=== PATIENT | male | born 1975 | race Caucasian/White ===

== ENCOUNTER 2020-05-11 11:35 | Emergency (ER) | payer MEDICAID, SELFPAY ==
[2020-05-11 11:57] VITALS: BP 131/76; PULSE 65; RESP 16; TEMP 36.6; O2SAT 99; BMI 21.7
--- NOTE | 2020-05-11 12:43 | ED_ITS ---
HPI - General Adult General Chief complaint: General Medical Stated complaint: hemroid Time Seen by Provider: 05/11/20 12:43 History of Present Illness HPI narrative: Patient is a 44-year-old male not on any medications. Presents today with having pain in his rectum. No fever no chills. No coughing or congestion or upper respiratory symptoms. No diaphoresis. Patient has no systemic complaints. Noted the mass in his rectum yesterday now with pain with defecation. Review of Systems Review of Systems: Constitutional: No Weight loss, No Fever, No Chills, No Night Sweats, No Fatigue, No Malaise ENT/Mouth: No Hearing loss, No Ear Pain, No Nasal Congestion, No Sinus Pain, No Hoarseness, No sore throat, No Rhinorrhea, No Swallowing Difficulty Eyes: No Eye Pain, No Swelling, No Redness, No Foreign Body, No Discharge, No Vision Changes Cardiovascular: No Chest Pain, No SOB, No Dyspnea on Exertion, No Orthopnea, No Edema, No Palpitations Respiratory: No Cough, No Sputum, No Wheezing, No Smoke Exposure, No Dyspnea Gastrointestinal: No Nausea, No Vomiting, No Diarrhea, No Constipation, No abdominal Pain, No Hematochezia, No Melena Genitourinary: no irregular bleeding, No Dysuria, No Urinary Frequency, No Hematuria, No Urinary Incontinence, No Urgency, No Flank Pain, No Urinary Flow Changes, No Hesitancy. Have positive hemorrhoid Musculoskeletal: No joint pain, No Myalgias, No Joint Swelling Skin: No Skin Lesions, No rash Neuro: No Weakness, No Numbness, No Paresthesias, No Loss of Consciousness, No Dizziness, No Headache Psych: No Anxiety/Panic, No Depression, No SI/HI/AH/VH, No Social Issues, Heme/Lymph: No Bruising, No Bleeding,No Lymphadenopathy Endocrine: No Polyuria, No Polydipsia, No Temperature Intolerance [facility] Past Medical History Attestation statement: The following information was validated with the patient. Medical History No known health problems Social History Social History Advance Directives: No Advance Directives Information Provided: Yes Physical Exam Vital Signs: Vital Signs: Last Vital Signs Temp 98 F 05/11/20 11:57 Pulse 65 05/11/20 11:57 Resp 16 05/11/20 11:57 BP 131/76 05/11/20 11:57 Pulse Ox 99 05/11/20 11:57 Body Mass Index 21.7 Appearance: Alert. Oriented X3. No acute distress. Eyes: Pupils equal, round and reactive to light. ENT: Pharynx normal. Neck: Normal inspection. Neck supple. No lymph nodes noted. No crepitus CVS: Normal heart rate and rhythm. Pulses normal. Normal S1 and S2 Respiratory: No respiratory distress. Breath sounds normal. No Wheezing. No rales Abdomen: Soft and nontender. No rigidity. No distention. good BS x4 Rectal exam positive thrombosed hemorrhoid noted approximately 3 cm in size. Tender to touch. Skin: Skin warm and dry. Normal skin color. Normal skin turgor. Extremities: No lower extremity edema. Neurovascular intact to all extremities. No Lacerations. No Rash Neuro: Oriented X 3. No motor deficit. No sensory deficit. Moving all extermities. No slurred speech Medical Decision Making MDM Narrative Medical decision making narrative: Patient's case discussed with surgery. Will see patient in her office. In stable condition with discharge patient Discharge Plan Discharge Clinical Impression: Hemorrhoid Patient Disposition: Home, Self-Care Instructions: Hemorrhoids (ED) Referrals: Gloria Kim MD [Physician] - None (Please go upstairs now)
== END 2020-05-11 13:06 | disposition home or self-care (01) ==
PROVIDERS: Emergency Provider Emergency Medicine Emergency Medical Services
DX: K64.9 Unspecified hemorrhoids (principal); K62.89 Other specified diseases of anus and rectum
CPT/HCPCS: 46083; 99202; 99283

== ENCOUNTER → 2020-05-23 09:57 | Outpatient (BNVA) | payer MEDICAID, SELFPAY | PROVIDERS: Visit Provider Surgery | DX: K64.5 Perianal venous thrombosis (principal) | CPT/HCPCS: 99212 ==

== ENCOUNTER 2020-06-09 15:36 | Emergency (ER) | payer MEDICAID, SELFPAY ==
[2020-06-09 16:19] VITALS: BP 122/72; PULSE 69; RESP 18; TEMP 36.9; O2SAT 98; BMI 22.2
== END 2020-06-09 19:15 | disposition left against medical advice (07) ==
PROVIDERS: Emergency Provider Emergency Medicine
DX: Z04.2 Encounter for examination and observation following work accident (principal)
CPT/HCPCS: 99282

== ENCOUNTER 2020-09-06 09:39 | Outpatient (REF) | payer OTHER, SELFPAY ==
--- NOTE | ~2020-09-06 | CT_ITS ---
EXAMINATION: CT ABDOMEN WITH CONTRAST CLINICAL INFORMATION: Splenomegaly COMPARISON: None TECHNIQUE: Contiguous axial thin section helical images of the abdomen were performed following the administration of oral contrast and 85 mL of Omnipaque 350 intravenous contrast. The data set was reformatted in the coronal and sagittal planes and reviewed on an independent workstation. This CT examination was performed using dose optimization techniques as appropriate, variously including the following: *Automated exposure control *Adjustment of mA and/or kV according to patient size (this includes techniques or standardized protocols for targeted exams where dose is matched to indication/reason for exam; i.e. extremities or head) *Use of iterative reconstruction technique DLP: 223 mGy-cm FINDINGS: LUNG BASES: The lung bases are clear. LIVER, GALLBLADDER, AND BILIARY TREE: There is a 1.2 cm low-attenuation lesion in the peripheral medial segment of the left lobe of the liver. Hounsfield units postcontrast measure 35 which is not suggestive of a simple cyst. It is uncertain whether this represents a complex cyst or could represent a solid liver lesion. The liver is otherwise unremarkable. The gallbladder is unremarkable. There is no biliary duct dilatation. PANCREAS: The pancreas is normal. SPLEEN: The spleen is slightly enlarged and measures 13.5 cm in length. ADRENAL GLANDS AND KIDNEYS: The adrenal glands are normal. There is a small 4 mm low-attenuation fatty. Lesion in the lower pole right kidney questionable for an angiomyolipoma, coronal reconstructed image 42. There is a 3 x 6 mm low-attenuation fatty appearing lesion in the lower pole of the left kidney also questionable for an angiomyolipoma, coronal reconstructed image 48. There is a 4 mm low-attenuation lesion in the lower pole the right kidney, coronal 39 reconstructed image questionable for a cyst. The kidneys are otherwise unremarkable. BOWEL LOOPS: The visualized small and large bowel is unremarkable. The appendix is unremarkable. The stomach is unremarkable. LYMPH NODES: Normal. VASCULAR: Unremarkable. BONES: Unremarkable CT/CT abdomen w con IMPRESSION: Mild splenomegaly. 1.2 cm low-attenuation liver lesion that is difficult to characterize and not compatible with a simple cyst. Small bilateral low-attenuation renal lesions questionable for angiomyolipomas and cyst.
[2020-09-06] MEDS: iohexoL 350 MG/ML 100 ML INFUS..BTL IV (11:50)
== END 2020-09-06 09:40 | disposition home or self-care (01) ==
LOC: HO.CT 09:39
PROVIDERS: Visit Provider Physician Assistant
DX: R16.1 Splenomegaly, not elsewhere classified (principal)
CPT/HCPCS: 74160; Q9967

== ENCOUNTER → 2020-12-01 09:47 | Outpatient (BNVA) | payer OTHER, SELFPAY | PROVIDERS: PCP Physician Assistant; Referring Provider Physician Assistant; Visit Provider Internal Medicine Gastroenterology | DX: R16.1 Splenomegaly, not elsewhere classified (principal); K76.9 Liver disease, unspecified | CPT/HCPCS: 99202 ==

== ENCOUNTER 2020-12-12 07:48 | Outpatient (REF) | payer OTHER, SELFPAY ==
--- NOTE | ~2020-12-12 | MR_ITS ---
EXAMINATION: MR ABDOMEN WITHOUT AND WITH CONTRAST CLINICAL INFORMATION: R16.1 - Splenomegaly, not elsewhere classified. Patient also notes pain, anorexia for 3 years. COMPARISON: CT abdomen with contrast 09/06/2020. TECHNIQUE: MR abdomen was performed without and with use of 8.5 mL intravenous Gadavist gadolinium contrast. Postcontrast images are performed in multiphase dynamic sequences. Imaging was performed in 3 planes. FINDINGS: LUNG BASES: The visualized lung bases are unremarkable. LIVER, GALLBLADDER, AND BILIARY TREE: The liver is normal in size and smooth in contour and uniform in signal. There is no intrahepatic ductal dilatation. Borderline signal decrease is present on out of phase imaging which may suggest borderline hepatic steatosis. There is a subcapsular cyst in the anterior segment 4 left lobe corresponding to the recent CT study and measuring 0.9 x 1.5 cm. This is circumscribed, uniform high signal on T2, and shows no enhancement following gadolinium. The remainder of the liver shows no arterial or delayed enhancing lesion or lesion with washout. The gallbladder is unremarkable with no evidence of gallbladder wall thickening, or obvious pericholecystic inflammatory changes. PANCREAS: Normal in size and contour and signal. No pancreatic ductal distention. SPLEEN: The spleen is borderline enlarged measuring 13.0 cm in length and 10.6 cm in sagittal dimension. The spleen is smooth in contour and uniform in signal. There is an incidental splenule left upper quadrant measuring 1.9 x 1.4 cm. ADRENAL GLANDS: Normal. KIDNEYS AND URETERS: The kidneys are normal in size and enhance symmetrically. There is no hydronephrosis or perinephric stranding. Probable angiomyolipoma suggested lower pole left kidney and lower pole right kidney, both just around 0.5 cm. GASTROINTESTINAL TRACT: No bowel obstruction. No ascites or fluid collection. ABDOMINAL WALL: No significant hernia is appreciated. LYMPH NODES: No lymphadenopathy. VASCULAR: Unremarkable. OSSEOUS STRUCTURES: Marrow signal normal. MR/MR abdomen wo/w con IMPRESSION: 1. Mild splenic enlargement, homogeneous. No adenopathy or ascites. 2. Normal liver. Subcapsular cyst anterior left lobe corresponding to finding on recent CT. 3. 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
== END 2020-12-12 07:49 | disposition home or self-care (01) ==
LOC: HO.MRI 07:48
PROVIDERS: PCP Physician Assistant; Visit Provider Internal Medicine Gastroenterology
DX: R16.1 Splenomegaly, not elsewhere classified (principal); K76.9 Liver disease, unspecified
CPT/HCPCS: 74183; A9585

== ENCOUNTER 2021-12-04 08:24 | Outpatient (REF) | payer OTHER, SELFPAY ==
[2021-12-04 08:56] LABS: Hemoglobin 15.8 g/dl (14.0-18.0); Mean Corpuscular HGB Conc 35.1 g/dl (31.0-36.0); Mean Corpuscular Hemoglobin 30.5 pg (27.0-33.0); Mean Corpuscular Volume 86.9 fL (80.0-98.0); Mean Platelet Volume 10.5 fL (9.4-12.4); Platelet Count 186 X10*3/uL (160-400); Red Blood Count 5.18 X10*6/uL (4.60-5.80); Red Cell Distribution Width 13.2 % (11.0-16.0); White Blood Count 9.9 X10*3/uL (4.8-10.8)
[2021-12-04 09:33] LABS: Alanine Aminotransferase 35 U/L (0-40); Albumin Level 4.6 g/dL (3.5-5.0); Alkaline Phosphatase 97 U/L (39-117); Anion Gap 11 (12-20); Aspartate Amino Transferase 26 U/L (5-37); Bilirubin Total 1.5 mg/dL (0.0-1.0); Blood Urea Nitrogen 12 mg/dL (9-16); Calcium 9.3 mg/dL (8.4-10.2); Carbon Dioxide 28 mmol/L (22-29); Chloride 104 mmol/L (96-108); Cholesterol 185 mg/dL; Estimated Glomerular Filt Rate > 60; Glucose Fasting 104 mg/dL (60-99); HDL Cholesterol 43 mg/dL; LDL Cholesterol Calculated 132 mg/dl; Potassium 4.2 mmol/L (3.3-5.1); Sodium 139 mmol/L (135-145); Total Protein 7.3 g/dL (6.5-8.0); Triglycerides 53 mg/dL
[2021-12-04 09:41] LABS: TSH reflex Free T4 0.94 uIU/mL (0.32-4.0)
== END 2021-12-04 08:25 | disposition home or self-care (01) ==
LOC: HO.LAB 08:24
PROVIDERS: PCP Physician Assistant; Visit Provider Physician Assistant
DX: Z13.220 Encounter for screening for lipoid disorders (principal); Z13.29 Encounter for screening for other suspected endocrine disorder
CPT/HCPCS: 36415; 80053; 80061; 84443; 85027

== ENCOUNTER → 2022-09-10 12:46 | Outpatient (BNVA) | payer OTHER, SELFPAY | PROVIDERS: PCP Physician Assistant; Visit Provider Nurse Practitioner Family | DX: R07.81 Pleurodynia (principal); R05.8 Other specified cough; R16.1 Splenomegaly, not elsewhere classified; G43.009 Migraine without aura, not intractable, without status migrainosus; Z86.79 Personal history of other diseases of the circulatory system | CPT/HCPCS: 99202 ==

== ENCOUNTER 2022-11-20 15:13 | Outpatient (AMB) | payer OTHER, SELFPAY ==
[2022-11-20 15:16] VITALS: BP 118/84; PULSE 82; O2SAT 95; BMI 25.4
--- NOTE | 2022-11-20 15:16 | MHC.OFFVIS ---
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 [facility] Medical History History of pneumothorax No known health problems Surgical History History of hernia repair History of knee surgery History of open heart surgery Family History Father Diabetes Social History (Updated 12/04/21 @ 08:04 by Manny Reed PA-C) Housing: House Alcohol intake: current Alcohol intake frequency: holidays/special occasions only Alcohol type: hard liquor Patient Tobacco Use Status: Never used Tobacco e-Cigarette/Vaping Use: Never Used Second Hand Smoke Exposure: No service: No Current occupational status: employed Current occupation: [employer] Cognitive needs: No Hearing needs: No Vision needs: No Review of Systems Const Denies daytime sleepiness, Denies excessive sweating, Denies fatigue, Denies fever(s), Denies lethargy, Denies malaise, Denies night sweats, Denies snoring and Denies weight loss Eyes Denies blurry vision and Denies itchy eyes ENT Denies nasal congestion, Denies post nasal drip, Denies sinus pain, Denies sinus pressure and Denies other ( Thrush) Card Denies chest pain, Denies pedal edema, Denies dyspnea, Denies orthopnea and Denies paroxysmal nocturnal dyspnea Resp Denies cough, Denies hemoptysis, Denies excessive phlegm production, Denies dyspnea, Denies snoring and Denies wheezing GI Denies abdominal pain and Denies heartburn Musc Denies myalgias, Denies arthralgias, Denies joint swelling and Reports other (Left-sided rib/lung pain) Skin/Breast Denies rash Neuro Denies memory loss and Denies seizure-like activity Psych Denies abnormal sleep pattern, Denies anxiety and Denies memory loss Endo Denies excessive sweating, Denies fatigue and Denies heat intolerance John/Lymph Denies easy bruising Aller/Immun Denies itchy eyes, Denies seasonal rhinorrhea and Denies wheezing Physical Exam Vital Signs: Last Vital Signs Pulse 82 11/20/22 15:16 BP 118/84 11/20/22 15:16 Pulse Ox 95 11/20/22 15:16 BMI result Body Mass Index 25.4 Const General: no acute distress and alert Nutritional Appearance: not obese Orientation/consciousness: Other orientation findings ( oriented) HEENT Head: Yes atraumatic Eyes General: appearance normal, both eyes and all related structures Sclerae: sclerae normal EOM: EOMs intact bilaterally Neck Neck: Yes supple Lymphatic: no lymphadenopathy noted Resp Effort & Inspection: normal respiratory effort and no use of accessory muscles Auscultation: clear to auscultation bilaterally Cardio Rate: regular rate Rhythm: regular rhythm Heart sounds: no gallops, no murmurs and no rubs Skin General skin exam: other ( warm) Extrem General: No clubbing, No cyanosis and No edema Assessment & Plan Assessment & Plan (1) Rib pain on left side: Code(s): R07.81 - Pleurodynia (2) Cough: Code(s): R05.9 - Cough, unspecified Plan Unclear etiology of patient symptoms at this time. Will obtain PFT and CT chest for further evaluation. Orders: Orders CT chest wo IV con Today R07.81 - Pleurodynia PFT pulmonary function test Today R05.9 - Cough, unspecified Coding Level of Care Code New Pt Level 3 (10914) Diagnoses Rib pain on left side R07.81 Cough R05.9
== END 2022-11-20 15:37 | disposition home or self-care (01) ==
PROVIDERS: PCP Physician Assistant; Visit Provider Internal Medicine Pulmonary Disease
DX: R07.81 Pleurodynia (principal); R05.9 Cough, unspecified
CPT/HCPCS: 99203

== ENCOUNTER → 2022-11-20 15:13 | Outpatient (BNVA) | payer OTHER, SELFPAY | PROVIDERS: PCP Physician Assistant; Visit Provider Internal Medicine Pulmonary Disease | DX: R07.81 Pleurodynia (principal); R05.9 Cough, unspecified; Z98.890 Other specified postprocedural states; Z80.1 Family history of malignant neoplasm of trachea, bronchus and lung | CPT/HCPCS: 99202 ==

== ENCOUNTER 2022-12-06 15:13 | Outpatient (REF) | payer OTHER, SELFPAY ==
--- NOTE | 2022-12-06 15:56 | PFT_ITS ---
Forced vital capacity 81%, FEV1 84%. FEV1/FVC ratio is 80. FEF 25/75 88%. MVV is 55%. Post bronchodilator therapy, there is no change. Total lung capacity 72%. Residual volume 46%. Diffusion capacity 105%. There is no evidence of obstructive airway disorder. Mild restrictive pulmonary disorder. Clinical correlation is recommended. MD HANNAH Hernandez/MODL / [id number]
== END 2022-12-06 15:14 | disposition home or self-care (01) ==
LOC: HO.RESP 15:13
PROVIDERS: PCP Physician Assistant; Visit Provider Internal Medicine Pulmonary Disease
DX: R05.9 Cough, unspecified (principal)
CPT/HCPCS: 94010; 94727; 94729

== ENCOUNTER → 2022-12-06 15:56 | Outpatient (BNV) | payer OTHER, SELFPAY | PROVIDERS: PCP Physician Assistant; Visit Provider Internal Medicine | DX: R05.9 Cough, unspecified (principal); R07.82 Intercostal pain | CPT/HCPCS: 94060; 94727; 94729 ==

== ENCOUNTER 2023-01-15 14:01 | Outpatient (AMB) | payer OTHER, SELFPAY ==
[2023-01-15 14:09] VITALS: BP 116/70; PULSE 70; O2SAT 98; BMI 25.2
--- NOTE | 2023-01-15 14:09 | A.OFFPC_ITS ---
Vital Signs 01/15/23 14:09 Height 6 ft Weight 186 lb 2 oz BMI 25.2 BP 116/70 Blood Pressure Location Lt brachial Position Sitting Pulse 70 Pulse Source Pulse Oximeter Pulse Oximetry (%) 98 Oxygen Delivery Method Room Air Intake Visit Reasons: PE Intake Note: Patient is here today for a physical. Is Project Manager Required: No Accompanied by: Self / Same As Patient Allergies No Known Drug Allergies Allergy (Unknown, Verified 01/16/23 07:40) Unknown blueberries Allergy (Mild, Uncoded 01/15/23 14:39) Hives Medication List - Last Reconciled 01/16/23 by Manny Reed PA-C magnesium glycinate 200 mg (2 x 100 mg) PO DAILY 30 days riboflavin (vitamin B2) 400 mg PO DAILY 30 days sumatriptan succinate take 1 tab at onset of headache; if no relief may repeat 1 tab after at least 2 hrs; max = 4 tabs/24 hr PO 30 days Tobacco use date assessed: 12/04/21 Dental Screening Dental Screen Date: 01/15/23 Did you have a dental visit in the last 12 months?: No Did you have a dental problem in the last 6 months where you did not have access to dental care?: Yes Was dental information given to patient?: Yes HPI PE HPI Details Patient is a 47 year-old male here today for annual physical.? Patient has a past medical history significant for migraines, splenomegaly. Concerns--> .. Migraines: Have been fairly well controlled with use of Imitrex. He reports during the summer months during hot weather his migraines are more frequent. He is now on FMLA for migraine attacks..? . .. ?Splenomegaly :? Will be seeing Gastroenterology in near future for the diagnosis of splenomegaly.? He reports he still has intermittent pains in his left upper abdominal quadrant.? Reports at times having the inability to take deep breaths and coughing up clear sputum which he is attributing to his enlarged spleen.? Has gotten MRI of abdomen and pelvis showing splenomegaly. He has seen pain management for his chronic left upper abdominal/flank pain and was refer to pulmonology for possible pulmonary issue. Has been sent for CT of chest which is at this time pending. Vaccine: REports getting Tdap in 2018, UTD with COVID VAc, decline flu vaccine? Colon cancer screening: Undecided at this time. [facility] Medical History History of pneumothorax No known health problems Surgical History History of hernia repair History of knee surgery History of open heart surgery Family History Father Diabetes Social History Housing: House Alcohol intake: current Alcohol intake frequency: holidays/special occasions only Alcohol type: hard liquor Patient Tobacco Use Status: Never used Tobacco e-Cigarette/Vaping Use: Never Used Second Hand Smoke Exposure: No service: No Current occupational status: employed Current occupation: [employer] Cognitive needs: No Hearing needs: No Vision needs: No Questionnaire PHQ-9 Over the last 2 weeks, how often have you been bothered by any of the following problems? 1. Little interest or pleasure in doing things: several days 2. Feeling down, depressed, or hopeless: more than half the days 3. Trouble falling or staying asleep, or sleeping too much: more than half the days 4. Feeling tired or having little energy: nearly every day 5. Poor appetite or overeating: several days 6. Feeling bad about yourself - or that you are a failure or have let yourself or your family down: nearly every day 7. Trouble concentrating on things, such as reading the newspaper or watching television: not at all 8. Moving or speaking so slowly that other people could have noticed. Or the opposite - being so fidgety or restless that you have been moving around a lot more than usual: not at all 9. Thoughts that you would be better off or of hurting yourself in some way: several days Total score: 13 Depression Screening Interpretation: Positive 97334 - PHQ-9 Billing: Yes Source: Developed by Drs. Nasir Patel, Charity Nelson, Daryl Gilliam and colleagues, with an educational noemy from [employer]. Thrive Questionnaire Date Thrive assessed: 01/15/23 I am a: Patient What is your living situation today?: I have a steady place to live Within the past 12 months, did the food you bought not last and you didn't have the money to get more?: Never true Within the past 12 months, did you worry whether your food would run out before you got money to buy more?: Never true Do you have trouble paying for medicines?: No Do you have trouble getting transportation to medical appointments?: No Do you have trouble paying your heating and electricity bill?: No Do you have trouble taking care of your child, family member or friend?: No Do you have trouble with day-to-day activities such as bathing, preparing meals, shopping, managing finances, etc.?: No Are you currently unemployed and looking for a job?: No Are you interested in more education?: No Please select the resources that you would like help with: None Currently or been in a relationship where the following occur: no concerns reported AUDIT C Alcohol Use Questionnaire (AUDIT-C) 1. How often do you have a drink containing alcohol?: Never 3. How often do you have six or more drinks on one occasion?: Never Total Score: 0 WILIAM-7 AMB Questionnaire WILIAM-7 Date WILIAM - 7 assessed: 01/15/23 Feeling nervous, anxious, or on edge: 0 = Not at all Not being able to stop or control worryin = Several days Worrying too much about different things: 2 = More than half the days Trouble relaxin = Nearly every day Being so restless that it is hard to sit still: 1 = Several days Becoming easily annoyed or irritable: 2 = More than half the days Feeling afraid as if something awful might happen: 1 = Several days Total WILIAM-7 score (0-4 normal; 5-9 mild; 10-14 moderate; 15-21 severe): 10 Source: Developed by Drs. Nasir Patel, Charity Nelson, Daryl Gilliam and colleagues, with an educational noemy from [employer] [facility]. WILIAM-7 Assessment Billing WILIAM-7 Assessment Tool: WILIAM-7 Assessment 20064 Review of Systems Const Denies body aches, Denies chills, Denies excessive sweating, Denies fatigue, Denies fever(s) and Denies headache(s) Eyes Denies blurry vision ENT Denies dysphagia, Denies vertigo, Denies dizziness, Denies headache(s), Denies hearing loss and Denies tinnitus Card Denies chest pain, Denies chest pain with activity, Denies syncope, Denies irregular heart rhythm and Denies dyspnea Resp Denies chest congestion, Denies cough, Denies hemoptysis, Denies dyspnea and Denies wheezing GI Denies abdominal pain, Denies melena, Denies hematochezia, Denies coffee ground emesis, Denies dysphagia, Denies diarrhea, Denies nausea and Denies vomiting Denies difficulty urinating, Denies dysuria, Denies urinary frequency, Denies ur inary hesitancy and Denies urinary urgency Musc Denies arthralgias, Denies limited range of motion, Denies muscle cramps and Denies muscle weakness Skin/Breast Denies rash and Denies skin ulcer Neuro Denies Abnormal speech present, Denies confusion, Denies vertigo, Denies dizziness, Denies syncope, Denies headache(s), Denies memory loss and Denies seizure-like activity Psych Denies anxiety, Denies confusion, Denies depression, Denies memory loss, Denies panic attacks and Denies paranoia Endo Denies excessive sweating, Denies fatigue, Denies flushing, Denies polydipsia and Denies polyuria Aller/Immun Denies wheezing Physical exam (Primary Care) Vital Signs: Last Vital Signs Pulse 70 01/15/23 14:09 BP 116/70 01/15/23 14:09 Pulse Ox 98 01/15/23 14:09 Oxygen Delivery Method Room Air 01/15/23 14:09 BMI result Body Mass Index 25.2 Tobacco/Smoking Status: Tobacco use Status Tobacco use date assessed 12/04/21 01/15/23 14:09 Patient Tobacco Use Status Never used Tobacco 01/15/23 14:09 e-Cigarette/Vaping Use Never Used 01/15/23 14:09 PHQ-9: PHQ-9 Score PHQ-9: Total score 13 01/15/23 15:06 Depression Screening Interpretation: Positive Thrive Assessment: Date of Thrive Assessment Date Thrive assessed 01/15/23 01/15/23 14:45 Currently or been in a relationship where the following occur: no concerns r eported Const General: cooperative, comfortable, no acute distress, alert and awake; No confusion Orientation/consciousness: oriented to person, oriented to place, patient oriented x3 and No confusion HENMT Head: Yes normocephalic Ears: external ears normal and TM's normal bilaterally Face and sinus: No sinus tenderness Mouth: Normal oral and palatal mucosa present and tongue normal Teeth and gingiva: dentition normal and gingiva normal Throat: Yes posterior oropharynx normal, Yes tonsils normal and Yes uvula midline Eyes Conjunctivae: conjunctivae normal Sclerae: sclerae normal Pupils: Equal, round and reactive pupils present EOM: EOMs intact bilaterally Direct Ophthalmoscopy: No no photophobia Neck Neck: Yes no lymphadenopathy, No tender and Yes no JVD Thyroid: Thyroid normal Carotids: no bruits Chest Chest palpation & inspection: no tenderness Resp Effort & Inspection: normal respiratory effort, no audible wheezes, not labored and no stridor Auscultation: no crackles, no rales, no rhonchi and no wheezes Cardio Jugular venous distension: no JVD Rate: regular rate, not bradycardic and not tachycardic Rhythm: regular rhythm Bruits: no carotid bruits Peripheral pulses: Peripheral pulses 2+ throughout GI Inspection: Yes normal to inspection, No abdominal wall ecchymosis and No visible herniation Palpation (GI): Soft to palpation, nontender, no guarding, not rigid and No hepatosplenomegaly present Auscultation: normoactive bowel sounds General: Yes no CVA tenderness Back/Spine/Pelvis Back: no CVA tenderness and No back tenderness Cervical Spine: cervical ROM normal Thoracic/Lumbar Spine: thoracic and lumbar spine normal to inspection, straight leg raise negative bilaterally, No thoraco-lumbar ROM limited and No lumbar spinal tenderness Skin Lesions: no lesions Rashes: no rashes Wounds: no wounds Neuro General: oriented to person, oriented to place, patient oriented x3, CN's II-XI intact bilaterally and No confusion Cranial nerves: Yes Equal, round and reactive pupils present and Yes Normal accommodation reflex present Cognition (Neuro): normal cognition Speech: No Abnormal speech present Gait exam (Neuro): Normal gait present Motor exam (neuro): 5/5 motor strength present throughout Extrem Right upper extremity: full ROM; no cyanosis Left upper extremity: full ROM; no cyanosis Right lower extremity: no edema Left lower extremity: no edema Psych Appearance: grossly normal Mental Status: mental status grossly normal Affect: normal affect Attitude: cooperative Thought process: Normal thought process present Assessment and Plan Assessment & Plan (1) Annual physical exam: Code(s): Z00.00 - Encounter for general adult medical examination without abnormal findings (2) Migraines: Code(s): G43.909 - Migraine, unspecified, not intractable, without status migrainosus Qualifiers: Intractability: not intractable Migraine type: without aura Status migrainosus presence: without status migrainosus Qualified Code(s): G43.009 - Migraine without aura, not intractable, without status migrainosus Plan: As per HPI patient does use p.r.n. Imitrex which works well to reduce the severi ty of his migraines. Unfortunately he feels his trigger is hot weather. Now on FMLA for his migraine attacks. Not interested in seeing a neurologist at this time. (3) Splenomegaly: Code(s): R16.1 - Splenomegaly, not elsewhere classified Plan: Was noted to have splenomegaly on abdominal imaging. Continues to have intermittent left upper quadrant pain which has been evident over the last several years. CBC showing no issues with his platelet counts. Has been referred to pulmonology for evaluation of his right-sided rib and left upper quadrant pain (4) Impaired glucose metabolism: Code(s): R73.09 - Other abnormal glucose Plan: Does have elevated fasting blood sugar. Advised on low carbohydrate diet and being more physically active. Will continue to follow fasting blood sugar and A1c to evaluate for diabetes. (5) MDD (major depressive disorder), recurrent episode, moderate: Code(s): F33.1 - Major depressive disorder, recurrent, moderate Plan: Patient's PHQ-9 score positive for mild to moderate depression which has been existing condition for him over the last several years. He believes he is grieving the loss of his father still. Not interested in speaking with a mental health therapist at this time (6) WILIAM (generalized anxiety disorder): Code(s): F41.1 - Generalized anxiety disorder Plan: Patient's WILIAM-7 score positive for moderate anxiety, again not interested in medication. He does use nonpharmacological techniques on reducing his anxiety. Orders: Orders Hemoglobin A1c 01/15/23 R73.09 - Other abnormal glucose Comprehensive [place]. Panel Fast 01/15/23 Z13.1 - Encounter for screening for diabetes mellitus Complete Blood Count no Diff 01/15/23 R16.1 - Splenomegaly, not elsewhere classified Medications: Discontinued benzonatate Discontinued Reason: Doctor's Order 200 mg PO TID 15 caps 0RF 5 days R05.9 - Cough, unspecified Coding Level of Care Code Est Pt Prev Care 40-64y(10111) Diagnoses Annual physical exam Z00.00 Migraine without aura and without status migrainosus, not intractable G43.009 Intractability: not intractable Migraine type: without aura Status migrainosus presence: without status migrainosus Splenomegaly R16.1 Impaired glucose metabolism R73.09 MDD (major depressive disorder), recurrent episode, moderate F33.1 WILIAM (generalized anxiety disorder) F41.1 Additional Codes WILIAM-7 Assessment Billing - WILIAM-7 Assessment Tool: WILIAM-7 Assessment 93087 ([id number])
== END 2023-01-15 15:19 | disposition home or self-care (01) ==
PROVIDERS: PCP Physician Assistant; Visit Provider Physician Assistant
DX: Z00.00 Encounter for general adult medical examination without abnormal findings (principal); G43.009 Migraine without aura, not intractable, without status migrainosus; R16.1 Splenomegaly, not elsewhere classified; F33.1 Major depressive disorder, recurrent, moderate; R73.09 Other abnormal glucose; F41.1 Generalized anxiety disorder
CPT/HCPCS: 99396

== ENCOUNTER 2023-01-24 16:22 | Outpatient (REF) | payer OTHER, SELFPAY ==
--- NOTE | ~2023-01-24 | CT_ITS ---
EXAMINATION: CT CHEST WITHOUT CONTRAST CLINICAL INFORMATION: Pleurodynia COMPARISON: None available. TECHNIQUE: Multidetector volumetric CT imaging of the chest was done. Axial MIP volume rendering provided. Sagittal and coronal reformatted images were obtained. This CT examination was performed using dose optimization techniques as appropriate, variously including the following: *Automated exposure control *Adjustment of mA and/or kV according to patient size (this includes techniques or standardized protocols for targeted exams where dose is matched to indication/reason for exam; i.e. extremities or head) *Use of iterative reconstruction technique DLP: 285 mGy-cm FINDINGS: LUNGS: Mild biapical pleural and parenchymal scarring. Question postsurgical change at the right lung apex versus linear calcifications. Bilateral deeper pulmonary nodules probably related to pleural and parenchymal scarring. Largest measures 5 mm in the left upper lobe axial image 90 series. 3 mm peripheral or subpleural nodule adjacent to the nature fissure axial image 177 series 4. This probably represents a subpleural lymph node. 5 mm peripheral or subpleural left lower lobe nodule axial image 312 series 4. This probably represents a subpleural lymph node as well. Small calcified pulmonary nodules, largest measuring 3 mm in the lingula axial image 358 series 4. 2 mm peripheral right lower lobe nodule axial image 44 series. MEDIASTINUM: Upper normal heart size. No pericardial effusion. Mild atherosclerotic disease. Enlarged hilar or mediastinal lymph nodes. Normal caliber thoracic aorta. CORONARY ARTERY CALCIFICATION: None visualized on this study. PLEURA: There is no pleural effusion. No pleural mass or thickening. AXILLA: Surgical clips in the right lateral chest wall. Atrophy of the right lateral chest wall muscles compared to the left side. UPPER ABDOMEN: Unremarkable. OSSEOUS STRUCTURES: Old trauma to the right lateral fourth and fifth ribs. CT/CT chest wo IV con IMPRESSION: Old trauma to the right lateral chest wall. Postsurgical changes to the right lateral chest wall and atrophic changes of the right lateral chest wall muscles. Question postsurgical changes at the right lung apex. Small pulmonary nodules, largest measuring 5 mm. According to the UPDATED 2017 Fleischner Society recommendations, the advised follow-up imaging for less than 6 mm solid nodule: Low risk, no chest CT follow-up and high, optional chest CT follow-up in one year. Fleischner guidelines were followed.
== END 2023-01-24 16:23 | disposition home or self-care (01) ==
LOC: HO.CT 16:22
PROVIDERS: PCP Physician Assistant; Visit Provider Internal Medicine Pulmonary Disease
DX: R07.81 Pleurodynia (principal)
CPT/HCPCS: 71250

== ENCOUNTER 2023-03-07 15:02 | Outpatient (AMB) | payer OTHER, SELFPAY ==
[2023-03-07 15:03] VITALS: BP 102/62; PULSE 69; O2SAT 96; BMI 24.8
--- NOTE | 2023-03-07 15:03 | A.OFFVIS_ITS ---
Intake Vital Signs 03/07/23 15:03 Height 6 ft Weight 182 lb 15.739 oz BMI 24.8 BP 102/62 Blood Pressure Location Lt brachial Position Sitting Pulse 69 Pulse Source Doppler Pulse Oximetry (%) 96 Oxygen Delivery Method Room Air Intake Visit Reasons: Cough Allergies No Known Drug Allergies Allergy (Unknown, Verified 03/07/23 15:05) Unknown blueberries Allergy (Mild, Uncoded 01/15/23 14:39) Hives HPI Cough HPI Details 47-year-old gentleman, nonsmoker, with u nderlying history of cardiac surgery at 5 years of age for cardiac defect, family history of lung cancer in maternal uncle after significant smoking, 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 Results of CT chest reviewed, evidence of prior chest injury. Patient wants to discuss if there is any role for thoracic surgery. [facility] Medical History History of pneumothorax No known health problems Surgical History History of hernia repair History of knee surgery History of open heart surgery Family History Father Diabetes Social History Housing: House Alcohol intake: current Alcohol intake frequency: holidays/special occasions only Alcohol type: hard liquor Patient Tobacco Use Status: Never used Tobacco e-Cigarette/Vaping Use: Never Used Second Hand Smoke Exposure: No service: No Current occupational status: employed Current occupation: [employer] Cognitive needs: No Hearing needs: No Vision needs: No Review of Systems Const Denies daytime sleepiness, Denies excessive sweating, Denies fatigue, Denies fever(s), Denies lethargy, Denies malaise, Denies night sweats, Denies snoring and Denies weight loss Eyes Denies blurry vision and Denies itchy eyes ENT Denies nasal congestion, Denies post nasal drip, Denies sinus pain, Denies sinus pressure and Denies other ( Thrush) Card Denies chest pain, Denies pedal edema, Reports dyspnea (Intermittent), Denies orthopnea and Denies paroxysmal nocturnal dyspnea Resp Denies cough, Denies hemoptysis, Denies excessive phlegm production, Reports dyspnea (Intermittent), Denies snoring and Denies wheezing GI Denies abdominal pain and Denies heartburn Musc Denies myalgias, Denies arthralgias and Denies joint swelling Skin/Breast Denies rash Neuro Denies memory loss and Denies seizure-like activity Psych Denies abnormal sleep pattern, Denies anxiety and Denies memory loss Endo Denies excessive sweating, Denies fatigue and Denies heat intolerance John/Lymph Denies easy bruising Aller/Immun Denies itchy eyes, Denies seasonal rhinorrhea and Denies wheezing Physical Exam Vital Signs: Last Vital Signs Pulse 69 03/07/23 15:03 BP 102/62 03/07/23 15:03 Pulse Ox 96 03/07/23 15:03 Oxygen Delivery Method Room Air 03/07/23 15:03 BMI result Body Mass Index 24.8 Const General: no acute distress and alert Nutritional Appearance: not obese Orientation/consciousness: Other orientation findings ( oriented) HEENT Head: Yes atraumatic Eyes General: appearance normal, both eyes and all related structures Sclerae: sclerae normal EOM: EOMs intact bilaterally Neck Neck: Yes supple Lymphatic: no lymphadenopathy noted Resp Effort & Inspection: normal respiratory effort and no use of accessory muscles Auscultation: clear to auscultation bilaterally Cardio Rate: regular rate Rhythm: regular rhythm Heart sounds: no gallops, no murmurs and no rubs Skin General skin exam: other ( warm) Extrem General: No clubbing, No cyanosis and No edema Assessment & Plan Assessment & Plan (1) Chest wall pain: Code(s): R07.89 - Other chest pain Plan: Patient would like to discuss possible role of thoracic surgery in his symptoms. Thoracic surgery referral placed. Will start on empiric Breo of for symptoms related to changes in seasons. Orders: Referrals Thoracic Surgery Referral R07.89 - Other chest pain Medications: New fluticasone furoate-vilanterol 200-25 mcg/dose (Breo Ellipta) 1 inh inhalation DAILY 1 ea 6RF 30 days R07.89 - Other chest pain Coding Level of Care Code Est Pt Level 3 (68123) Diagnoses Chest wall pain R07.89
== END 2023-03-07 15:22 | disposition home or self-care (01) ==
PROVIDERS: PCP Physician Assistant; Visit Provider Internal Medicine Pulmonary Disease
DX: R07.89 Other chest pain (principal)
CPT/HCPCS: 99213

== ENCOUNTER → 2023-03-07 15:02 | Outpatient (BNVA) | payer OTHER, SELFPAY | PROVIDERS: PCP Physician Assistant; Visit Provider Internal Medicine Pulmonary Disease | DX: R07.89 Other chest pain (principal) | CPT/HCPCS: 99212 ==

== ENCOUNTER 2023-03-24 15:21 | Outpatient (AMB) | payer OTHER, SELFPAY ==
--- NOTE | 2023-03-24 15:25 | A.OFFVIS_ITS ---
Intake Vital Signs 03/24/23 15:31 Height 6 ft Weight 183 lb BMI 24.8 BP 123/75 Blood Pressure Location Rt brachial Position Sitting Pulse 83 Intake Visit Reasons: Other chest pain Intake Note: Patient referred for chest pain. Had Chest Ct in January. Patient reports inflammation between ribs and abd after injury 4yrs ago. Noticed difficulty breathing. Gets random dry cough. Injury is sports related. Associate Scientist Required: No Accompanied by: Self / Same As Patient Allergies No Known Drug Allergies Allergy (Unknown, Verified 03/24/23 15:32) Unknown blueberries Allergy (Mild, Uncoded 03/24/23 15:32) Hives HPI HPI Comments History of Present Illness Details Patient presents for evaluation of chronic left mid/ anterior costal pain. This happens with exertion and coughing. He has had extensive workup including recent CT scan in January which demonstrated on the contralateral right side postsurgical changes. He does not recall any direct trauma to the area of the he did play baseball. He has been seen by pulmonology. He claims that he feels shortness of breath although his lung workup has been negative. Patient had pediatric cardiac surgery right open blebectomy several years ago. He has no such surgeries on the contralateral left side. [facility] Medical History History of pneumothorax No known health problems Surgical History History of knee surgery History of open heart surgery History of hernia repair Family History Father Diabetes Social History Housing: House Alcohol intake: current Alcohol intake frequency: holidays/special occasions only Alcohol type: hard liquor Patient Tobacco Use Status: Never used Tobacco e-Cigarette/Vaping Use: Never Used Second Hand Smoke Exposure: No service: No Current occupational status: employed Current occupation: [employer] Cognitive needs: No Hearing needs: No Vision needs: No Physical Exam Vital Signs: Last Vital Signs Pulse 83 03/24/23 15:31 BP 123/75 03/24/23 15:31 BMI result Body Mass Index 24.8 HEENT Other: Chest breath sounds bilaterally. Right thoracotomy scar. Sternotomy scar. No obvious left-sided chest pathology. Assessment & Plan Assessment & Plan (1) Chest wall pain: Code(s): R07.89 - Other chest pain (2) Rib pain on left side: Code(s): R07.81 - Pleurodynia Plan Have reviewed the patient's studies and scans, at present, there is no thoracic surgical pathology demonstrated. Is unclear whether his chronic coughing is causing intercostal discomfort or perhaps he has intercostal neuralgia. A current recommendation stranger him to be seen by chronic Pain Clinic. Will follow-up with me p.r.n.. Coding Level of Care Code New Pt Level 4 (16595) Diagnoses Chest wall pain R07.89 Rib pain on left side R07.81
[2023-03-24 15:31] VITALS: BP 123/75; PULSE 83; BMI 24.8
== END 2023-03-24 15:55 | disposition home or self-care (01) ==
PROVIDERS: PCP Physician Assistant; Visit Provider Surgery
DX: R07.89 Other chest pain (principal); R07.81 Pleurodynia
CPT/HCPCS: 99204

== ENCOUNTER → 2023-03-24 15:21 | Outpatient (BNVA) | payer OTHER, SELFPAY | PROVIDERS: PCP Physician Assistant; Visit Provider Surgery | DX: R07.89 Other chest pain (principal); R07.81 Pleurodynia | CPT/HCPCS: 99202 ==

== ENCOUNTER 2023-06-10 08:33 | Emergency (ER) | payer OTHER, SELFPAY ==
--- NOTE | ~2023-06-10 | XR_ITS ---
EXAMINATION: XR CHEST CLINICAL INFORMATION: Cough, partial lobectomy COMPARISON: CT chest 02/01/2024 TECHNIQUE: 2 views of the chest were obtained. FINDINGS: Old trauma to the right lateral chest wall with postsurgical changes to the right lateral chest wall. Surgical clips are seen in the region of the right lateral chest wall and also 2 surgical clips are seen in the medial right lung apex. The lungs are well expanded and clear. No focal consolidation, interstitial pulmonary edema or pneumothorax. There is mild biapical pleural thickening. No pleural effusion. The cardiomediastinal silhouette is within normal limits. No acute osseous abnormality. XR/XR chest 2V IMPRESSION: No acute cardiopulmonary disease.
[2023-06-10 08:42] VITALS: BP 98/62; PULSE 90; RESP 19; TEMP 36.6; O2SAT 98; BMI 24.8
[2023-06-10 10:04] LABS: COVID-19 Test Negative (Negative); IDNOW Serial# 08D9AD1C; IDNOW Serial# 152EDE1D; Influenza A Negative (Negative); Influenza B2 Negative (Negative)
--- NOTE | 2023-06-10 10:43 | ED.GENADULT ---
HPI - General Adult General Chief complaint: Upper Respiratory Symptoms Stated complaint: sore body, cough Time Seen by Provider: 06/10/23 08:54 Source: patient and RN notes reviewed Mode of arrival: ambulatory Limitations: no limitations History of Present Illness HPI narrative: This is a 47-year-old male, with a past medical history of partial lobectomy, presenting to the emergency department with complaints of dry cough, body aches, and ?rattling in lungs? since this morning. Patient states that yesterday he noticed a dry cough. He states that this morning he developed body aches and continues to cough. Patient denies any fevers, chills, headache, dizziness, chest pain, shortness of breath, abdominal pain, nausea vomiting or diarrhea. Patient is currently in the emergency department with his son who tested positive for influenza A. He took aspirin prior to his arrival which provided him with some relief. No other complaints or concerns at this time. MD complaint: Dry cough, body aches Onset (ago): day(s) Radiation: non-radiation Quality: aching Pain Consistency: constant Relieving factors: none Exacerbating factors: none Associated symptoms: denies other symptoms Treatments prior to arrival: none Related Data Previous Rx's Medication Instructions Recorded magnesium glycinate 100 mg tablet 200 mg (2 x 100 mg) PO DAILY 09/10/22 migraine headache 30 days #60 tabs fluticasone furoate 200 1 inh inhalation DAILY 30 days #1 03/07/23 mcg-vilanterol 25 mcg/dose ea inhalation powder (Breo Ellipta) sumatriptan succinate 25 mg tablet See Rx Instructions PO .COMPLEX 30 04/16/23 days #9 tabs oseltamivir 75 mg capsule (Tamiflu) 75 mg PO BID 5 days #10 caps 06/10/23 Allergies Allergy/AdvReac Type Severity Reaction Status Date / Time No Known Drug Allergies Allergy Unknown Unknown Verified 03/24/23 15:32 blueberries Allergy Mild Hives Uncoded 06/10/23 08:41 Review of Systems Review of Systems: Yes all other systems are reviewed and are negative PMFSH Past Medical History Attestation statement: The following information was validated with the patient. Medical History History of pneumothorax No known health problems Surgical History History of knee surgery History of open heart surgery History of hernia repair Family History Family History Father Diabetes Social History Social History Housing: House Alcohol intake: current Alcohol intake frequency: holidays/special occasions only Alcohol type: hard liquor Patient Tobacco Use Status: Never used Tobacco Smoked in Last 30 Days: No e-Cigarette/Vaping Use: Never Used Second Hand Smoke Exposure: No Advance Directives: No service: No Current occupational status: employed Current occupation: [employer] Cognitive needs: No Hearing needs: No Vision needs: No Physical Exam ED Vital Signs: Vital Signs - 24 hr 06/10/23 08:42 Temperature 98 F Pulse Rate 90 Respiratory Rate 19 Blood Pressure 98/62 Pulse Oximetry 98 BMI result Body Mass Index 24.8 Const General: cooperative, comfortable and no acute distress Orientation/consciousness: patient oriented x3 Limitations: no limitations [facility] Head: Yes normal to inspection, Yes normocephalic and Yes atraumatic Ears: hearing grossly normal bilaterally General nose exam: Normal external nose present Face and sinus: Yes normal facial exam Mouth: Normal oral and palatal mucosa present, oropharynx normal and moist mucous membranes Throat: Yes posterior oropharynx normal Eyes General: appearance normal, both eyes and all related structures Eyelids: Yes eyelids normal Conjunctivae: conjunctivae normal Sclerae: sclerae normal Pupils: Equal, round and reactive pupils present EOM: EOMs intact bilaterally Neck Neck: Yes normal visual inspection, Yes full ROM and Yes no lymphadenopathy Lymphatic: no lymphadenopathy noted Chest Chest palpation & inspection: normal inspection of the chest Resp Effort & Inspection: normal respiratory effort and able to speak in complete sentences Auscultation: clear to auscultation bilaterally, no crackles, no rales, no rhonchi and no wheezes Cardio Rate: regular rate Rhythm: regular rhythm Heart sounds: S1 normal heart sound present and S2 normal heart sound present GI Inspection: Yes normal to inspection Skin General skin exam: no rashes or lesions noted Trauma: no lacerations or abrasions Wounds: no wounds Neuro General: patient oriented x3 and moves all extremities Cranial nerves: Yes Equal, round and reactive pupils present Extrem General: Yes normal to inspection Right upper extremity: normal to inspection Left upper extremity: normal to inspection Right lower extremity: normal to inspection Left lower extremity: normal to inspection Course Reevaluation(s) Reevaluation #1: Patient tested negative for COVID and flu. Chest x-ray does not show any abnormalities. There are old trauma to the right lateral chest wall with postsurgical changes. Given patient has high-risk situation given partial lobectomy and frequent pneumonia and lung infections, will treat for influenza a as patient is symptomatic and has positive exposure in his house. I discussed this with my attending physician who is in agreement. Discussed this with patient, given return precautions. Patient understands and agrees with plan. Patient stable for discharge. Time: 11:19 Medical Decision Making Medical Decision Making MDM Narrative: This is a 47-year-old male presenting to the emergency department for evaluation of dry cough, and body aches. He noticed a dry cough develop yesterday, now has. On arrival, patient nontoxic appearing vital signs within normal limits. Lungs clear to auscultation bilaterally. Abdomen is soft and nontender. Son is currently sick with influenza a. Differential diagnoses include influenza, COVID, pneumonia, upper respiratory infection. Differential Diagnosis Differential Diagnoses: The differential diagnosis associated with the presentation includes See above Lab Data MDM Lab Attestation statement: I reviewed the patient's lab results. Tested negative for COVID and influenza Labs: Lab Results 06/10/23 Range/Units 09:20 COVID-19 (JOYCE) Negative (Negative) COVID-19 Clin Com See Note Influenza Type A (GEORGE) Negative (Negative) Influenza Type B (GEORGE) Negative (Negative) Influenza A & B Note See Note Radiology Impression Discussion of test interpretation with radiology: I have reviewed the radiologist's reading. Radiologist Impression: EXAMINATION: XR CHEST CLINICAL INFORMATION: Cough, partial lobectomy COMPARISON: CT chest 02/01/2024 TECHNIQUE: 2 views of the chest were obtained. FINDINGS: Old trauma to the right lateral chest wall with postsurgical changes to the right lateral chest wall. Surgical clips are seen in the region of the right lateral chest wall and also 2 surgical clips are seen in the medial right lung apex. The lungs are well expanded and clear. No focal consolidation, interstitial pulmonary edema or pneumothorax. There is mild biapical pleural thickening. No pleural effusion. The cardiomediastinal silhouette is within normal limits. No acute osseous abnormality. XR/XR chest 2V IMPRESSION: No acute cardiopulmonary disease. Dictated By: Funmilayo Umanzor MD Discharge Plan Discharge Clinical Impression: Influenza A, Acute viral syndrome Patient Disposition: Home, Self-Care Instructions: Influenza (ED), Viral Syndrome (ED) Additional Instructions: You were seen in the emergency department for body aches, and fevers. Your test was negative for COVID and flu. Your chest x-ray does not show a pneumonia. Given you have very close contact with an individual with flu, you likely have the flu and this may have been a false negative or too soon to come back positive. You likely have influenza A. Therefore given your risk factors, I am treating you for the flu as you are within the window for treatment. Please take full course of Tamiflu. Drink plenty of fluids get plenty of rest. Take ibuprofen or Tylenol as needed for pain and symptoms. If you develop any new or worsening symptoms including but not limited to chest pain, shortness of breath, fevers not responding to ibuprofen or Tylenol, please return for re-evaluation. Prescriptions: New oseltamivir [Tamiflu] 75 mg capsule 75 mg PO BID 5 Days Qty: 10 0RF No Action sumatriptan succinate 25 mg tablet See Rx Instructions PO .COMPLEX 30 Days Qty: 9 6RF Rx Instructions: take 1 tab at onset of headache; if no relief may repeat 1 tab after at least 2 hrs; max = 4 tabs/24 hr PO fluticasone furoate-vilanterol [Breo Ellipta] 200-25 mcg/dose blister with device 1 inh inhalation DAILY 30 Days Qty: 1 6RF magnesium glycinate 100 mg tablet 200 mg PO DAILY 30 Days Qty: 60 0RF Stand Alone Forms: Work/School Release Interventions: ED Discharge Assessment Last Done: 06/10/23 11:51 Discharge Date/Time: 06/10/23 11:48
[2023-06-10 11:43] VITALS: BP 101/57; PULSE 72; RESP 16; TEMP 37.2; O2SAT 96
[2023-06-10 11:49] VITALS: O2SAT 98
== END 2023-06-10 11:48 | disposition home or self-care (01) ==
PROVIDERS: Emergency Provider Emergency Medicine Emergency Medical Services; PCP Physician Assistant
DX: J10.1 Influenza due to other identified influenza virus with other respiratory manifestations (principal); B34.9 Viral infection, unspecified; R05.9 Cough, unspecified; M79.10 Myalgia, unspecified site; Z11.52 Encounter for screening for COVID-19; Z79.899 Other long term (current) drug therapy
CPT/HCPCS: 71046; 87502; 87635; 99283; 99284

== ENCOUNTER 2023-07-23 15:17 | Outpatient (AMB) | payer OTHER, SELFPAY ==
[2023-07-23 15:47] VITALS: BP 102/60; PULSE 72; O2SAT 97; BMI 24.0
--- NOTE | 2023-07-23 15:47 | A.OFFPC_ITS ---
Vital Signs 07/23/23 15:47 Height 6 ft Weight 177 lb BMI 24.0 BP 102/60 Blood Pressure Location Lt brachial Position Sitting Pulse 72 Pulse Source Pulse Oximeter Pulse Oximetry (%) 97 Oxygen Delivery Method Room Air Intake Visit Reasons: f/u Migraines Solution Lead Required: No Accompanied by: Self / Same As Patient Allergies No Known Drug Allergies Allergy (Unknown, Verified 07/23/23 16:01) Unknown blueberries Allergy (Mild, Uncoded 07/23/23 15:53) Hives Medication List - Last Reconciled 07/23/23 by Manny Reed PA-C fluticasone furoate-vilanterol 200-25 mcg/dose (Breo Ellipta) 1 inh inhalation DAILY 30 days magnesium glycinate 200 mg (2 x 100 mg) PO DAILY 30 days sumatriptan succinate take 1 tab at onset of headache; if no relief may repeat 1 tab after at least 2 hrs; max = 4 tabs/24 hr PO 30 days Tobacco use date assessed: 07/23/23 Dental Screening Dental Screen Date: 07/23/23 Did you have a dental visit in the last 12 months?: No Did you have a dental problem in the last 6 months where you did not have access to dental care?: Yes Was dental information given to patient?: Yes HPI f/u Migraines HPI Details Patient is a 47 year-old male here today for a follow-up visit.? Patient has a past medical history significant for migraines, splenomegaly. Concerns--> .. Migraines: Have been fairly well controlled with use of Imitrex. He reports during the summer months during hot weather his migraines are more frequent. He is now on FMLA for migraine attacks. He has had to take a few days off of work above and beyond his FMLA. He would like his FMLA change to have 1 more day off a month. .. ?Splenomegaly :? Will be seeing Gastroenterology in near future for the diagnosis of splenomegaly.? He reports he still has intermittent pains in his left upper abdominal quadrant.? Reports at times having the inability to take deep breaths and coughing up clear sputum which he is attributing to his enlarged spleen.? Has gotten MRI of abdomen and pelvis showing splenomegaly. He has seen pain management for his chronic left upper abdominal/flank pain and was refer to pulmonology for possible pulmonary issue. Has also had CT chest and followed up with thoracic surgeon though there is no interested thoracic patholog. He reports he is not too bothered by his left upper abdominal pain anymore. [facility] Medical History History of pneumothorax No known health problems Surgical History History of knee surgery History of open heart surgery History of hernia repair Family History Father Diabetes Social History Housing: House Alcohol intake: current Alcohol intake frequency: holidays/special occasions only Alcohol type: hard liquor Patient Tobacco Use Status: Never used Tobacco e-Cigarette/Vaping Use: Never Used Second Hand Smoke Exposure: No service: No Current occupational status: employed Current occupation: [employer] Cognitive needs: No Hearing needs: No Vision needs: No Questionnaire PHQ-9 Over the last 2 weeks, how often have you been bothered by any of the following problems? 1. Little interest or pleasure in doing things: not at all 2. Feeling down, depressed, or hopeless: not at all 3. Trouble falling or staying asleep, or sleeping too much: not at all 4. Feeling tired or having little energy: not at all 5. Poor appetite or overeating: not at all 6. Feeling bad about yourself - or that you are a failure or have let yourself or your family down: not at all 7. Trouble concentrating on things, such as reading the newspaper or watching television: not at all 8. Moving or speaking so slowly that other people could have noticed. Or the opposite - being so fidgety or restless that you have been moving around a lot more than usual: not at all 9. Thoughts that you would be better off or of hurting yourself in some way: not at all Total score: 0 Depression Screening Interpretation: Negative Depression Screening Done: Yes 30782 - PHQ-9 Billing: Yes Source: Developed by Drs. Nasir Patel, Charity Nelson, Daryl Gilliam and colleagues, with an educational noemy from [employer]. Thrive Questionnaire Date Thrive assessed: 07/23/23 I am a: Patient What is your living situation today?: I have a steady place to live Within the past 12 months, did the food you bought not last and you didn't have the money to get more?: Never true Within the past 12 months, did you worry whether your food would run out before you got money to buy more?: Never true Do you have trouble paying for medicines?: No Do you have trouble getting transportation to medical appointments?: No Do you have trouble paying your heating and electricity bill?: No Do you have trouble taking care of your child, family member or friend?: No Do you have trouble with day-to-day activities such as bathing, preparing meals, shopping, managing finances, etc.?: No Are you currently unemployed and looking for a job?: No Are you interested in more education?: No Please select the resources that you would like help with: None Currently or been in a relationship where the following occur: no concerns reported THRIVE Score: 0 AUDIT C Alcohol Use Questionnaire (AUDIT-C) 1. How often do you have a drink containing alcohol?: Never 3. How often do you have six or more drinks on one occasion?: Never Total Score: 0 WILIAM-7 AMB Questionnaire WILIAM-7 Date WILIAM - 7 assessed: 07/23/23 Feeling nervous, anxious, or on edge: 0 = Not at all Not being able to stop or control worryin = Not at all Worrying too much about different things: 0 = Not at all Trouble relaxin = Not at all Being so restless that it is hard to sit still: 0 = Not at all Becoming easily annoyed or irritable: 0 = Not at all Feeling afraid as if something awful might happen: 0 = Not at all Total WILIAM-7 score (0-4 normal; 5-9 mild; 10-14 moderate; 15-21 severe): 0 Source: Developed by Drs. Nasir Patel, Charity Nelson, Daryl Gilliam and colleagues, with an educational noemy from [employer]. WILIAM-7 Assessment Billing WILIAM-7 Assessment Tool: WILIAM-7 Assessment 79377 Review of Systems Const Denies headache(s) Eyes Denies loss of vision ENT Denies vertigo, Denies dizziness, Denies headache(s) and Denies sore throat Card Denies chest pain, Denies leg edema and Denies lightheadedness Resp Denies cough, Denies hemoptysis and Denies wheezing GI Denies abdominal pain, Denies melena, Denies constipation, Denies diarrhea and Denies vomiting Denies dysuria, Denies urinary frequency and Denies urinary urgency Musc Denies arthralgias, Denies joint swelling, Denies numbness and Denies tingling Neuro Denies Abnormal speech present, Denies behavioral changes, Denies vertigo, Denies dizziness, Denies headache(s), Denies loss of vision, Denies memory loss, Denies numbness and Denies tingling Psych Denies anxiety, Denies behavioral changes, Denies depression, Denies memory loss and Denies panic attacks John/Lymph Denies easy bleeding and Denies easy bruising Aller/Immun Denies wheezing Physical exam (Primary Care) Vital Signs: Last Vital Signs Pulse 72 07/23/23 15:47 BP 102/60 07/23/23 15:47 Pulse Ox 97 07/23/23 15:47 Oxygen Delivery Method Room Air 07/23/23 15:47 BMI result Body Mass Index 24.0 Tobacco/Smoking Status: Tobacco use Status Tobacco use date assessed 07/23/23 07/23/23 15:54 Patient Tobacco Use Status Never used Tobacco 07/23/23 15:48 e-Cigarette/Vaping Use Never Used 07/23/23 15:48 PHQ-9: PHQ-9 Score PHQ-9: Total score 0 07/23/23 16:04 Depression Screening Interpretation: Negative Thrive Assessment: Date of Thrive Assessment Date Thrive assessed 07/23/23 07/23/23 15:50 Currently or been in a relationship where the following occur: no concerns reported Const General: healthy appearing, no acute distress, alert and awake Nutritional Appearance: well nourished Orientation/consciousness: oriented to person, oriented to place and oriented to time HENMT Ears: TM's normal bilaterally General nose exam: Normal nasal mucous membranes and turbinates present Eyes Conjunctivae: conjunctivae normal Sclerae: sclerae normal Pupils: Equal, round and reactive pupils present Neck Neck: Yes no lymphadenopathy and Yes no JVD Thyroid: Thyroid normal Carotids: no bruits Resp Effort & Inspection: normal respiratory effort and not tachypneic Auscultation: no crackles, no rales, no rhonchi and no wheezes Cardio Rate: regular rate Rhythm: regular rhythm Heart sounds: no murmurs and normal S1 and S2 GI Palpation (GI): Soft to palpation, nontender, no hepatomegaly and no splenomegaly Auscultation: normal bowel sounds Skin General skin exam: no rashes or lesions noted and dry skin Neuro General: oriented to person, oriented to place and oriented to time Cranial nerves: Yes Equal, round and reactive pupils present Speech: No Abnormal speech present Gait exam (Neuro): Normal gait present Motor exam (neuro): no tremor noted Extrem Right upper extremity: full ROM Left upper extremity: full ROM Right lower extremity: full ROM; no edema Left lower extremity: full ROM; no edema Psych Mental Status: mental status grossly normal Speech and movement: Normal speech and movement present Affect: normal affect Attitude: cooperative Thought process: Normal thought process present Assessment and Plan Assessment & Plan (1) Migraines: Code(s): G43.909 - Migraine, unspecified, not intractable, without status migrainosus Qualifiers: Intractability: not intractable Migraine type: without aura Status migrainosus presence: without status migrainosus Qualified Code(s): G43.009 - Migraine without aura, not intractable, without status migrainosus Plan: As per HPI patient does use p.r.n. Imitrex which works well to reduce the severity of his migraines. Unfortunately he feels his trigger is hot weather. Now on FMLA for his migraine attacks. Not interested in seeing a neurologist at this time. (2) Splenomegaly: Code(s): R16.1 - Splenomegaly, not elsewhere classified Plan: Was noted to have splenomegaly on abdominal imaging. Continues to have intermittent left upper quadrant pain which has been evident over the last several years. CBC showing no issues with his platelet counts. Has followed up with with a director of intercollegiate athletics and a Cardiothoracic surgeon, though no evidence of pathology. Considering pain management evaluation for intercostal neuralgia. (3) Impaired glucose metabolism: Code(s): R73.09 - Other abnormal glucose Plan: Does have elevated fasting blood sugar. Advised on low carbohydrate diet and being more physically active. Will continue to follow fasting blood sugar and A1c to evaluate for diabetes. (4) MDD (major depressive disorder), recurrent episode, moderate: Code(s): F33.1 - Major depressive disorder, recurrent, moderate Plan: Patient's PHQ-9 score - 0 , not on any medication and reports his depression has been much better as of lately (5) WILIAM (generalized anxiety disorder): Code(s): F41.1 - Generalized anxiety disorder Plan: Patient's WILIAM-7 score 0. Does have a history of anxiety though has been much better as of late. (6) Colon cancer screening: Code(s): Z12.11 - Encounter for screening for malignant neoplasm of colon Plan: Willing to do colonoscopy (7) Dermatitis: Code(s): L30.9 - Dermatitis, unspecified Plan: Has noted itchy spot over his upper back over the last year. Has been using cortisone 10 cream with only minimal relief. Will supply him with dual topical antifungal and steroid. Orders: Referrals Gastroenterology Referral Z12.11 - Encounter for screening for malignant neoplasm of colon Medications: New clotrimazole-betamethasone 1-0.05 % 1 appl topical BID 30 days 45 grams 0RF L30.9 - Dermatitis, unspecified Refilled sumatriptan succinate take 1 tab at onset of headache; if no relief may repeat 1 tab after at least 2 hrs; max = 4 tabs/24 hr PO 30 days 9 tabs 6RF G43.009 - Migraine without aura, not intractable, without status migrainosus Coding Level of Care Code Est Pt Level 4 (11415) Diagnoses Migraine without aura and without status migrainosus, not intractable G43.009 Intractability: not intractable Migraine type: without aura Status migrainosus presence: without status migrainosus Splenomegaly R16.1 Impaired glucose metabolism R73.09 MDD (major depressive disorder), recurrent episode, moderate F33.1 WILIAM (generalized anxiety disorder) F41.1 Colon cancer screening Z12.11 Dermatitis L30.9 Additional Codes WILIAM-7 Assessment Billing - WILIAM-7 Assessment Tool: WILIAM-7 Assessment [id number] ([id number])
== END 2023-07-23 16:14 | disposition home or self-care (01) ==
PROVIDERS: PCP Physician Assistant; Visit Provider Physician Assistant
DX: G43.009 Migraine without aura, not intractable, without status migrainosus (principal); R16.1 Splenomegaly, not elsewhere classified; R73.09 Other abnormal glucose; Z79.899 Other long term (current) drug therapy; F41.1 Generalized anxiety disorder; L30.9 Dermatitis, unspecified
CPT/HCPCS: 99214

== ENCOUNTER 2024-01-19 10:01 | Outpatient (AMB) | payer OTHER, SELFPAY ==
--- NOTE | 2024-01-19 10:31 | A.OFFPC_ITS ---
Vital Signs 3 01/19/24 10:37 Height 6 ft Weight 175 lb 6 oz BMI 23.8 BP 120/80 Blood Pressure Location Lt brachial Position Sitting Pulse 88 Pulse Source Pulse Oximeter Pulse Oximetry (%) 98 Oxygen Delivery Method Room Air Intake Visit Reasons: PE Intake Note: Patient is here today for a physical. FMLA formas for [employer] update with new dates. 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 Accompanied by: Self / Same As Patient Allergies No Known Drug Allergies Allergy (Unknown, Verified 01/19/24 10:47) Unknown blueberries Allergy (Mild, Uncoded 01/19/24 10:47) Hives Medication List - Last Reconciled 01/19/24 by Manny Reed PA-C clotrimazole-betamethasone 1-0.05 % 1 appl topical BID 30 days fluticasone furoate-vilanterol 200-25 mcg/dose (Breo Ellipta) 1 inh inhalation DAILY 30 days magnesium glycinate 200 mg (2 x 100 mg) PO DAILY 30 days sumatriptan succinate take 1 tab at onset of headache; if no relief may repeat 1 tab after at least 2 hrs; max = 4 tabs/24 hr PO 30 days Tobacco use date assessed: 07/23/23 Dental Screening Dental Screen Date: 07/23/23 HPI PE 2 HPI0 Details Patient is a 48 year-old male here today for routine annual physical.? Patient has a past medical history significant for migraines, splenomegaly. Concerns--> reports having right great toe pain when placing a lot of pressure on his foot. Believes he has a ingrown toenail .. Migraines: Have been fairly well controlled with use of Imitrex. He reports during the summer months during hot weather his migraines are more frequent. He is now on FMLA for migraine attacks. He has had to take a few days off of work above and beyond his FMLA. He would like his FMLA change to have 1 more day off a month. .. ?Splenomegaly :? Will be seeing Gastroenterology in near future for the diagnosis of splenomegaly.? He reports he still has intermittent pains in his left upper abdominal quadrant.? Reports at times having the inability to take deep breaths and coughing up clear sputum which he is attributing to his enlarged spleen.? Has gotten MRI of abdomen and pelvis showing splenomegaly. He has seen pain management for his chronic left upper abdominal/flank pain and was refer to pulmonology for possible pulmonary issue. Has also had CT chest and followed up with thoracic surgeon though there is no interested thoracic patholog. He reports he is not too bothered by his left upper abdominal pain anymore. Vaccine: REports getting Tdap in 2018, UTD with COVID VAc, decline flu vaccine? Colon cancer screening: Willing to do Cologuard [facility] Medical History History of pneumothorax No known health problems Surgical History History of knee surgery History of open heart surgery History of hernia repair Family History Father Diabetes Social History (Updated 01/19/24 @ 10:51 by Manny Reed PA-C) Housing: House Alcohol intake: current Alcohol intake frequency: holidays/special occasions only Alcohol type: hard liquor Patient Tobacco Use Status: Never used Tobacco e-Cigarette/Vaping Use: Never Used Second Hand Smoke Exposure: No service: No Current occupational status: employed Current occupation: [employer] Cognitive needs: No Hearing needs: No Vision needs: No Questionnaire PHQ-9 Over the last 2 weeks, how often have you been bothered by any of the following problems? 1. Little interest or pleasure in doing things: more than half the days 2. Feeling down, depressed, or hopeless: more than half the days 3. Trouble falling or staying asleep, or sleeping too much: several days 4. Feeling tired or having little energy: several days 5. Poor appetite or overeating: not at all 6. Feeling bad about yourself - or that you are a failure or have let yourself or your family down: not at all 7. Trouble concentrating on things, such as reading the newspaper or watching television: not at all 8. Moving or speaking so slowly that other people could have noticed. Or the opposite - being so fidgety or restless that you have been moving around a lot more than usual: not at all 9. Thoughts that you would be better off or of hurting yourself in some way: not at all Total score: 6 Depression Screening Interpretation: Positive Depression Screening Follow-up: Existing condition and Declines treatment Depression Screening Done: Yes 66525 - PHQ-9 Billing: Yes Source: Developed by Drs. Nasir Patel, Charity Nelson, Daryl Gilliam and colleagues, with an educational noemy from [employer]. Thrive Questionnaire Date Thrive assessed: 01/19/24 I am a: Patient What is your living situation today?: I have a steady place to live Within the past 12 months, did the food you bought not last and you didn't have the money to get more?: Never true Within the past 12 months, did you worry whether your food would run out before you got money to buy more?: Never true Do you have trouble paying for medicines?: No Do you have trouble getting transportation to medical appointments?: No Do you have trouble paying your heating and electricity bill?: No Do you have trouble taking care of your child, family member or friend?: No Do you have trouble with day-to-day activities such as bathing, preparing meals, shopping, managing finances, etc.?: No Are you currently unemployed and looking for a job?: No Are you interested in more education?: No Please select the resources that you would like help with: None Currently or been in a relationship where the following occur: No concerns reported THRIVE Score: 0 AUDIT C Alcohol Use Questionnaire (AUDIT-C) 1. How often do you have a drink containing alcohol?: Never 3. How often do you have six or more drinks on one occasion?: Never Total Score: 0 WILIAM-7 AMB Questionnaire WILIAM-7 Date WILIAM - 7 assessed: 01/19/24 Feeling nervous, anxious, or on edge: 0 = Not at all Not being able to stop or control worryin = Not at all Worrying too much about different things: 0 = Not at all Trouble relaxin = Several days Being so restless that it is hard to sit still: 0 = Not at all Becoming easily annoyed or irritable: 1 = Several days Feeling afraid as if something awful might happen: 0 = Not at all Total WILIAM-7 score (0-4 normal; 5-9 mild; 10-14 moderate; 15-21 severe): 2 Source: Developed by Charity Christensen B.W. Omar, Daryl Gilliam and colleagues, with an educational noemy from [employer]. WILIAM-7 Assessment Billing WILIAM-7 Assessment Tool: WILIAM-7 Assessment 95581 Review of Systems Const Denies body aches, Denies chills, Denies excessive sweating, Denies fatigue, Denies fever(s) and Denies headache(s) Eyes Denies blurry vision ENT Denies dysphagia, Denies vertigo, Denies dizziness, Denies headache(s), Denies hearing loss and Denies tinnitus Card Denies chest pain, Denies chest pain with activity, Denies syncope, Denies irregular heart rhythm and Denies dyspnea Resp Denies chest congestion, Denies cough, Denies hemoptysis, Denies dyspnea and Denies wheezing GI Denies abdominal pain, Denies melena, Denies hematochezia, Denies coffee ground emesis, Denies dysphagia, Denies diarrhea, Denies nausea and Denies vomiting Denies difficulty urinating, Denies dysuria, Denies urinary frequency, Denies urinary hesitancy and Denies urinary urgency Musc Denies arthralgias, Denies limited range of motion, Denies muscle cramps and Denies muscle weakness Skin/Breast Denies rash and Denies skin ulcer Neuro Denies Abnormal speech present, Denies confusion, Denies vertigo, Denies dizziness, Denies syncope, Denies headache(s), Denies memory loss and Denies seizure-like activity Psych Denies anxiety, Denies confusion, Denies depression, Denies memory loss, Denies panic attacks and Denies paranoia Endo Denies excessive sweating, Denies fatigue, Denies flushing, Denies polydipsia and Denies polyuria Aller/Immun Denies wheezing Physical exam (Primary Care) Vital Signs: Last Vital Signs Pulse 88 01/19/24 10:37 BP 120/80 01/19/24 10:37 Pulse Ox 98 01/19/24 10:37 Oxygen Delivery Method Room Air 01/19/24 10:37 BMI result Body Mass Index 23.8 Tobacco/Smoking Status: Tobacco use Status Tobacco use date assessed 07/23/23 01/19/24 10:33 Patient Tobacco Use Status Never used Tobacco 01/19/24 10:33 e-Cigarette/Vaping Use Never Used 09/09/24 10:33 PHQ-9: PHQ-9 Score PHQ-9: Total score 6 01/19/24 10:33 Depression Screening Interpretation: Positive Depression Screening Follow-up: Existing condition and Declines treatment Thrive Assessment: Date of Thrive Assessment Date Thrive assessed 01/19/24 01/19/24 10:33 Currently or been in a relationship where the following occur: No concerns reported Const General: cooperative, comfortable, no acute distress, alert and awake; No confusion Orientation/consciousness: oriented to person, oriented to place, patient oriented x3 and No confusion HENMT Head: Yes normocephalic Ears: external ears normal and TM's normal bilaterally Face and sinus: No sinus tenderness Mouth: Normal oral and palatal mucosa present and tongue normal Teeth and gingiva: dentition normal and gingiva normal Throat: Yes posterior oropharynx normal, Yes tonsils normal and Yes uvula midline Eyes Conjunctivae: conjunctivae normal Sclerae: sclerae normal Pupils: Equal, round and reactive pupils present EOM: EOMs intact bilaterally Direct Ophthalmoscopy: No no photophobia Neck Neck: Yes no lymphadenopathy, No tender and Yes no JVD Thyroid: Thyroid normal Carotids: no bruits Chest Chest palpation & inspection: no tenderness Resp Effort & Inspection: normal respiratory effort, no audible wheezes, not labored and no stridor Auscultation: no crackles, no rales, no rhonchi and no wheezes Cardio Jugular venous distension: no JVD Rate: regular rate, not bradycardic and not tachycardic Rhythm: regular rhythm Bruits: no carotid bruits Peripheral pulses: Peripheral pulses 2+ throughout GI Inspection: Yes normal to inspection, No abdominal wall ecchymosis and No visible herniation Palpation (GI): Soft to palpation, nontender, no guarding, not rigid and No hepatosplenomegaly present Auscultation: normoactive bowel sounds General: Yes no CVA tenderness Back/Spine/Pelvis Back: no CVA tenderness and No back tenderness Cervical Spine: cervical ROM normal Thoracic/Lumbar Spine: thoracic and lumbar spine normal to inspection, straight leg raise negative bilaterally, No thoraco-lumbar ROM limited and No lumbar spinal tenderness Skin Lesions: no lesions Rashes: no rashes Wounds: no wounds Neuro General: oriented to person, oriented to place, patient oriented x3, CN's II-XI intact bilaterally and No confusion Cranial nerves: Yes Equal, round and reactive pupils present and Yes Normal accommodation reflex present Cognition (Neuro): normal cognition Speech: No Abnormal speech present Gait exam (Neuro): Normal gait present Motor exam (neuro): 5/5 motor strength present throughout Extrem Right upper extremity: full ROM; no cyanosis Left upper extremity: full ROM; no cyanosis Right lower extremity: no edema Left lower extremity: no edema Ankle/foot/toe images: 2 1. SMALL CALLUS FORMATION OVER RIGHT GREAT TOE MEDIAL SIDE. Psych Appearance: grossly normal Mental Status: mental status grossly normal Affect: normal affect Attitude: cooperative Thought process: Normal thought process present Assessment and Plan Assessment & Plan (1) Annual physical exam: Code(s): Z00.00 - Encounter for general adult medical examination without abnormal findings (2) Ingrown nail of great toe of right foot: Code(s): L60.0 - Ingrowing nail Plan: Seems to an ingrown toenail in his great toe of his right foot and also a callus formation. He will try to do his own home nail grooming and if not effective will reach out for podiatry referral. (3) Migraines: Code(s): G43.909 - Migraine, unspecified, not intractable, without status migrainosus Qualifiers: Migraine type: without aura Status migrainosus presence: without status migrainosus Intractability: not intractable Qualified Code(s): G43.009 - Migraine without aura, not intractable, without status migrainosus Plan: As per HPI patient does use p.r.n. Imitrex which works well to reduce the severity of his migraines. Unfortunately he feels his trigger is hot weather. Now on FMLA for his migraine attacks. Not interested in seeing a neurologist at this time. (4) Impaired glucose metabolism: Code(s): R73.09 - Other abnormal glucose Plan: Does have elevated fasting blood sugar. Advised on low carbohydrate diet and being more physically active. Will continue to follow fasting blood sugar and A1c to evaluate for diabetes. (5) MDD (major depressive disorder), recurrent episode, moderate: Code(s): F33.1 - Major depressive disorder, recurrent, moderate Plan: Patient's PHQ-9 positive for mild depression which has been existing condition for him. , not on any medication and reports his depression has been much better as of lately (6) WILIAM (generalized anxiety disorder): Code(s): F41.1 - Generalized anxiety disorder Plan: Patient's WILIAM-7 positive for mild anxiety which has been existing condition for him.. Does have some stress related to his job. Not interested in medication or mental health therapy at this time.. (7) Colon cancer screening: Code(s): Z12.11 - Encounter for screening for malignant neoplasm of colon Plan: Willing to do Cologuard Orders: Referrals 2 Cologuard Test Z12.11 - Encounter for screening for malignant neoplasm of colon Coding Level of Care Code Est Pt Prev Care 40-64y(14314) Diagnoses Annual physical exam Z00.00 Ingrown nail of great toe of right foot L60.0 Migraine without aura and without status migrainosus, not intractable G43.009 Migraine type: without aura Status migrainosus presence: without status migrainosus Intractability: not intractable Impaired glucose metabolism R73.09 MDD (major depressive disorder), recurrent episode, moderate F33.1 WILIAM (generalized anxiety disorder) F41.1 Colon cancer screening Z12.11 Additional Codes WILIAM-7 Assessment Billing - WILIAM-7 Assessment Tool: WILIAM-7 Assessment [id number] ([id number])
[2024-01-19 10:37] VITALS: BP 120/80; PULSE 88; O2SAT 98; BMI 23.8
== END 2024-01-19 11:06 | disposition home or self-care (01) ==
PROVIDERS: PCP Physician Assistant; Visit Provider Physician Assistant
DX: Z00.00 Encounter for general adult medical examination without abnormal findings (principal); F33.1 Major depressive disorder, recurrent, moderate; L60.0 Ingrowing nail; G43.009 Migraine without aura, not intractable, without status migrainosus; R73.09 Other abnormal glucose; F41.1 Generalized anxiety disorder; Z12.11 Encounter for screening for malignant neoplasm of colon
CPT/HCPCS: 99396

== ENCOUNTER 2024-05-24 23:06 | Emergency (ER) | payer BC, SELFPAY | END 2024-05-25 01:28 | disposition left against medical advice (07) | PROVIDERS: Emergency Provider Emergency Medicine; PCP Physician Assistant | DX: R07.0 Pain in throat (principal) ==

== ENCOUNTER 2024-05-25 08:06 | Outpatient (AMB) | payer BC, SELFPAY ==
--- NOTE | 2024-05-25 08:46 | AM.OFFWIN_ITS ---
Intake Vital Signs 05/25/24 08:47 Weight 175 lb BP 110/70 Blood Pressure Location Lt brachial Position Sitting Pulse 65 Pulse Source Pulse Oximeter Temp 97.7 F Temp Source Oral Pulse Oximetry (%) 98 Oxygen Delivery Method Room Air Intake Visit Reasons: EP Throat concerns Intake Note: Patient here for sharp pain on left side of throat after having a canker sore which has been present since Friday and was put on antibiotic which has not helped. Patient Tobacco Use Status: Never used Tobacco Allergies No Known Drug Allergies Allergy (Unknown, Verified 05/25/24 08:49) Unknown blueberries Allergy (Mild, Uncoded 05/25/24 08:49) Hives Do you need a note to return to daycare/school/sports/work: Yes HPI HPI Comments History of Present Illness Details This is a 48-year-old male with no stated past medical history presenting for evaluation of a canker sore on his uvula. Patient states that he 1st noticed this last Friday, called his primary care physician on Friday and was prescribed amoxicillin to be taken 3 times daily. Patient states that he feels the pain has improved with saltwater gargles and topical milk of magnesia on the ulceration, however has developed a discomfort on the left side of his throat when swallowing. Patient does report subjective fevers and chills. [facility] Medical History History of pneumothorax No known health problems Surgical History History of knee surgery History of open heart surgery History of hernia repair Family History Father Diabetes Social History (Updated 01/19/24 @ 10:51 by Manny Reed PA-C) Housing: House Alcohol intake: current Alcohol intake frequency: holidays/special occasions only Alcohol type: hard liquor Patient Tobacco Use Status: Never used Tobacco e-Cigarette/Vaping Use: Never Used Second Hand Smoke Exposure: No service: No Current occupational status: employed Current occupation: [email or web address] Cognitive needs: No Hearing needs: No Vision needs: No Review of Systems Const All systems reviewed & are unremarkable except as noted in HPI and below Denies body aches, Reports chills and Reports fever(s) (subjective) Eyes Reports no additional complaints ENT Reports as per HPI, Denies otalgia, Denies neck mass, Reports odynophagia and Reports sore throat Card Reports no additional complaints Resp Reports no additional complaints GI Reports no additional complaints and Reports odynophagia Reports no additional complaints Skin/Breast Reports system reviewed and no additional complaints, except as documented Neuro Reports no additional complaints Psych Reports no additional complaints Endo Reports no additional complaints John/Lymph Reports no additional complaints Aller/Immun Reports no additional complaints Physical Exam Vital Signs: Last Vital Signs Temp 97.7 F 05/25/24 08:47 Pulse 65 05/25/24 08:47 BP 110/70 05/25/24 08:47 Pulse Ox 98 05/25/24 08:47 Oxygen Delivery Method Room Air 05/25/24 08:47 Patient is afebrile. Const General: cooperative, comfortable, no acute distress, well developed, alert, awake and Physically active; No lethargic Nutritional Appearance: average body habitus Orientation/consciousness: patient oriented x3 and No lethargic Limitations: no limitations HEENT Head: Yes normal to inspection Ears: hearing grossly normal bilaterally, external ears normal, TM's abnormal bilaterally (Bulging bilaterally, no erythema, no fluid level noted) and EAC's normal General nose exam: Normal external nose present Face and sinus: Yes normal facial exam and No sinuses nontender Mouth: Normal oral and palatal mucosa present, moist mucous membranes, no drooling, no fetor hepaticus, normal lip, No mouth trauma and other (0.75 x 0.5cm ulceration on uvula, irregular borders, surrounding erythema) Teeth and gingiva: dentition normal Throat: Yes uvula midline, No peritonsillar mass and No postnasal drainage Eyes General: appearance normal, both eyes and all related structures Neck Lymphatic: no lymphadenopathy noted Neuro General: patient oriented x3 Psych Appearance: grossly normal Mental Status: mental status grossly normal Insight: Good insight present (Psych) Judgement: Good judgement present (Psych) Assessment & Plan Assessment & Plan (1) Uvular edema: Comment: There is an ulceration of the uvula which is currently midline. Suspect a viral etiology however malignancy can not be ruled out. Patient will be provided with magic mouthwash to use for his comfort and ENT referral is recommended. Patient will follow up with his primary care provider. Low suspicion for peritonsillar abscess. Code(s): K13.79 - Other lesions of oral mucosa Plan: Magic mouthwash, referral to ENT recommended and the patient will follow up with his PCP for this referral. Medications: New Magic Mouthwash Diphen/Lido/Antacid 1:1:1 10ML swish and spit TID orally; Lidocaine Viscous 2 % 80mL; diphenhydramine 12.5 mg/5 mL 80mL; aluminum-mag hydrox-simeth [id number]/5mL 80mL 240 mL 0RF Coding Level of Care Code Est Pt Level 3 (87946) Diagnoses Uvular edema K13.79 Time Spent (min) 25
[2024-05-25 08:47] VITALS: BP 110/70; PULSE 65; TEMP 36.5; O2SAT 98
== END 2024-05-25 09:36 | disposition home or self-care (01) ==
PROVIDERS: PCP Physician Assistant; Visit Provider Physician Assistant
DX: K13.79 Other lesions of oral mucosa (principal)

== ENCOUNTER 2024-07-22 09:24 | Outpatient (AMB) | payer BC, SELFPAY ==
[2024-07-22 09:26] VITALS: BP 110/76; PULSE 65; O2SAT 99; BMI 24.3
--- NOTE | 2024-07-22 09:26 | A.OFFPC_ITS ---
Vital Signs 07/22/24 09:26 Height 6 ft Weight 179 lb 6 oz BMI 24.3 BP 110/76 Blood Pressure Location Lt brachial Position Sitting Pulse 65 Pulse Source Pulse Oximeter Pulse Oximetry (%) 99 Oxygen Delivery Method Room Air Intake Visit Reasons: 6 Month F/U w/ Disability Form Intake Note: Patient is here today for a physical. FMLA formas for [employer] update with new dates. 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 Accompanied by: Self / Same As Patient Allergies No Known Drug Allergies Allergy (Unknown, Verified 07/22/24 09:33) Unknown blueberries Allergy (Mild, Uncoded 07/22/24 09:33) Hives Medication List - Last Reconciled 07/22/24 by Manny Reed PA-C clotrimazole-betamethasone 1-0.05 % 1 appl topical BID 30 days fluticasone furoate-vilanterol 200-25 mcg/dose (Breo Ellipta) 1 inh inhalation DAILY 30 days sumatriptan succinate take 1 tab at onset of headache; if no relief may repeat 1 tab after at least 2 hrs; max = 4 tabs/24 hr PO 30 days Tobacco use date assessed: 07/22/24 Dental Screening Dental Screen Date: 07/22/24 Did you have a dental visit in the last 12 months?: Yes Did you have a dental problem in the last 6 months where you did not have access to dental care?: No Was dental information given to patient?: Patient has dentist HPI 6 Month F/U w/ Disability Form HPI Details Patient is a 48 year-old male here today for a follow-up visit.? Patient has a past medical history significant for migraines, splenomegaly. Recently quit his previous job and is training in a new job. .. Migraines: Have been fairly well controlled with use of Imitrex. He reports during the summer months during hot weather his migraines are more frequent. He was on FMLA for migraine attacks. He has had to take a few days off of work above and beyond his FMLA. .. ?Splenomegaly :? Will be seeing Gastroenterology in near future for the diagnosis of splenomegaly.? He reports he still has intermittent pains in his left upper abdominal quadrant.? Reports at times having the inability to take deep breaths and coughing up clear sputum which he is attributing to his enlarged spleen.? Has gotten MRI of abdomen and pelvis showing splenomegaly. He has seen pain management for his chronic left upper abdominal/flank pain and was refer to pulmonology for possible pulmonary issue. Has also had CT chest and followed up with thoracic surgeon though there is no interested thoracic patholog. He reports he is not too bothered by his left upper abdominal pain anymore. [facility] Medical History History of pneumothorax No known health problems Surgical History History of knee surgery History of open heart surgery History of hernia repair Family History Father Diabetes Social History Housing: House Alcohol intake: current Alcohol intake frequency: holidays/special occasions only Alcohol type: hard liquor Patient Tobacco Use Status: Never used Tobacco e-Cigarette/Vaping Use: Never Used Second Hand Smoke Exposure: No service: No Current occupational status: employed Current occupation: [employer] Cognitive needs: No Hearing needs: No Vision needs: No Questionnaire PHQ-9 Over the last 2 weeks, how often have you been bothered by any of the following problems? 1. Little interest or pleasure in doing things: more than half the days 2. Feeling down, depressed, or hopeless: more than half the days 3. Trouble falling or staying asleep, or sleeping too much: several days 4. Feeling tired or having little energy: several days 5. Poor appetite or overeating: not at all 6. Feeling bad about yourself - or that you are a failure or have let yourself or your family down: not at all 7. Trouble concentrating on things, such as reading the newspaper or watching television: not at all 8. Moving or speaking so slowly that other people could have noticed. Or the opposite - being so fidgety or restless that you have been moving around a lot more than usual: not at all 9. Thoughts that you would be better off or of hurting yourself in some way: not at all Total score: 6 Depression Screening Interpretation: Positive Depression Screening Follow-up: Existing condition and Declines treatment Depression Screening Done: Yes 60507 - PHQ-9 Billing: Yes Source: Developed by Drs. Nasir Patel, Daryl Beard and colleagues, with an educational noemy from [employer]. Thrive Questionnaire Date Thrive assessed: 07/22/24 I am a: Patient What is your living situation today?: I have a steady place to live Within the past 12 months, did the food you bought not last and you didn't have the money to get more?: Never true Within the past 12 months, did you worry whether your food would run out before you got money to buy more?: Never true Do you have trouble paying for medicines?: No Do you have trouble getting transportation to medical appointments?: No Do you have trouble paying your heating and electricity bill?: No Do you have trouble taking care of your child, family member or friend?: No Do you have trouble with day-to-day activities such as bathing, preparing meals, shopping, managing finances, etc.?: No Are you currently unemployed and looking for a job?: No Are you interested in more education?: No Please select the resources that you would like help with: None Currently or been in a relationship where the following occur: No concerns reported THRIVE Score: 0 AUDIT C Alcohol Use Questionnaire (AUDIT-C) 1. How often do you have a drink containing alcohol?: Never 3. How often do you have six or more drinks on one occasion?: Never Total Score: 0 WILIAM-7 AMB Questionnaire WILIAM-7 Date WILIAM - 7 assessed: 07/22/24 Feeling nervous, anxious, or on edge: 0 = Not at all Not being able to stop or control worryin = Not at all Worrying too much about different things: 0 = Not at all Trouble relaxin = Several days Being so restless that it is hard to sit still: 0 = Not at all Becoming easily annoyed or irritable: 1 = Several days Feeling afraid as if something awful might happen: 0 = Not at all Total WILIAM-7 score (0-4 normal; 5-9 mild; 10-14 moderate; 15-21 severe): 2 Source: Developed by Charity Christensen Kurt Kroenke and colleagues, with an educational noemy from [employer]. WILIAM-7 Assessment Billing WILIAM-7 Assessment Tool: WILIAM-7 Assessment 19882 Review of Systems Const Denies headache(s) Eyes Denies loss of vision ENT Denies vertigo, Denies dizziness, Denies headache(s) and Denies sore throat Card Denies chest pain, Denies leg edema and Denies lightheadedness Resp Denies cough, Denies hemoptysis and Denies wheezing GI Denies abdominal pain, Denies melena, Denies constipation, Denies diarrhea and Denies vomiting Denies dysuria, Denies urinary frequency and Denies urinary urgency Musc Denies arthralgias, Denies joint swelling, Denies numbness and Denies tingling Neuro Denies Abnormal speech present, Denies behavioral changes, Denies vertigo, Denies dizziness, Denies headache(s), Denies loss of vision, Denies memory loss, Denies numbness and Denies tingling Psych Denies anxiety, Denies behavioral changes, Denies depression, Denies memory loss and Denies panic attacks John/Lymph Denies easy bleeding and Denies easy bruising Aller/Immun Denies wheezing Physical exam (Primary Care) Vital Signs: Last Vital Signs Pulse 65 07/22/24 09:26 BP 110/76 07/22/24 09:26 Pulse Ox 99 07/22/24 09:26 Oxygen Delivery Method Room Air 07/22/24 09:26 BMI result Body Mass Index 24.3 Tobacco/Smoking Status: Tobacco use Status Tobacco use date assessed 07/22/24 07/22/24 09:31 Patient Tobacco Use Status Never used Tobacco 07/22/24 09:31 e-Cigarette/Vaping Use Never Used 07/22/24 09:31 PHQ-9: PHQ-9 Score PHQ-9: Total score 6 07/22/24 09:35 Depression Screening Interpretation: Positive Depression Screening Follow-up: Existing condition and Declines treatment Thrive Assessment: Date of Thrive Assessment Date Thrive assessed 07/22/24 07/22/24 09:31 Currently or been in a relationship where the following occur: No concerns reported Const General: healthy appearing, no acute distress, alert and awake Nutritional Appearance: well nourished Orientation/consciousness: oriented to person, oriented to place and oriented to time HENMT Ears: TM's normal bilaterally General nose exam: Normal nasal mucous membranes and turbinates present Eyes Conjunctivae: conjunctivae normal Sclerae: sclerae normal Pupils: Equal, round and reactive pupils present Neck Neck: Yes no lymphadenopathy and Yes no JVD Thyroid: Thyroid normal Carotids: no bruits Resp Effort & Inspection: normal respiratory effort and not tachypneic Auscultation: no crackles, no rales, no rhonchi and no wheezes Cardio Rate: regular rate Rhythm: regular rhythm Heart sounds: no murmurs and normal S1 and S2 GI Palpation (GI): Soft to palpation, nontender, no hepatomegaly and no splenomegaly Auscultation: normal bowel sounds Skin General skin exam: no rashes or lesions noted and dry skin Neuro General: oriented to person, oriented to place and oriented to time Cranial nerves: Yes Equal, round and reactive pupils present Speech: No Abnormal speech present Gait exam (Neuro): Normal gait present Motor exam (neuro): no tremor noted Extrem Right upper extremity: full ROM Left upper extremity: full ROM Right lower extremity: full ROM; no edema Left lower extremity: full ROM; no edema Psych Mental Status: mental status grossly normal Speech and movement: Normal speech and movement present Affect: normal affect Attitude: cooperative Thought process: Normal thought process present Coding Level of Care Code Est Pt Level 4 (43413) Diagnoses Migraine without aura and without status migrainosus, not intractable G43.009 Intractability: not intractable Migraine type: without aura Status migrainosus presence: without status migrainosus WILIAM (generalized anxiety disorder) F41.1 MDD (major depressive disorder), recurrent episode, moderate F33.1 Additional Codes WILIAM-7 Assessment Billing - WILIAM-7 Assessment Tool: WILIAM-7 Assessment 22392 ([id number]) PHQ-9 - 58778 - PHQ-9 Billing: Yes ([id number]) Assessment & Plan Assessment & Plan (1) Migraines: Code(s): G43.909 - Migraine, unspecified, not intractable, without status migrainosus Category: Medical Qualifiers: Intractability: not intractable Migraine type: without aura Status migrainosus presence: without status migrainosus Qualified Code(s): G43.009 - Migraine without aura, not intractable, without status migrainosus Plan: Patient reports his migraines are well controlled. Has not had to use much sumatriptan. His frequency and severity of his migraines have drastically reduced over the last year. (2) WILIAM (generalized anxiety disorder): Code(s): F41.1 - Generalized anxiety disorder Category: Medical Plan: Patient's WILIAM-7 score low. He has feeling optimistic about a new job. (3) MDD (major depressive disorder), recurrent episode, moderate: Code(s): F33.1 - Major depressive disorder, recurrent, moderate Category: Medical Plan: Patient's PHQ-9 score positive for mild depression which has been existing condition for him. He is not interested in any mental health medication at this time.
--- OUTSIDE RECORDS SUMMARY | 2024-07-22 10:59 | XMS_ITS | Clinical Summary ---
Author Organization [facility] Address [address] [place] [id number] Phone [email or web address] Care Team Providers Care Bottling Equipment Sales Representative Name Role Phone Abel Toribio Primary Care Provider Unavailabl e Allergies Active Allergy Reactions Criticality Noted Date Comments Blueberry Flavoring Agent (Non-Screening) 09/03/2017 Medications No known medications Active Problems Problem Noted Date Diagnosed Date Hypertriglyceridemia 12/10/2017 Rib pain on left side 09/03/2017 Assessment & Plan (09/03/2017 12:29 PM EDT): Referral for pain management ordered to discuss further interventional treatments such as a nerve block if indicated. 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 Overview (07/16/2017): Sprain of costal cartilage 05/14/2017 Overview (07/16/2017): Immunizations Name Administration Dates Next Due Influenza multi-dose VIAL (A fluria,Fluzone) trivalent (CVX-141) 05/22/2015 Tdap (ADACEL BOOSTRIX) (CVX-115) 07/16/2017 Family History Medical History Relation Name Comments Cancer Mother's Brother Julian Relation Name Status Comments Mother's Brother Julian Social History Tobacco Use Types Packs/Day Years Used Date Smoking Tobacco: Never Smokeless Tobacco: Never Alcohol Use Standard Drinks/Week Comments No 0 (1 standard drink = 0.6 oz pur e alcohol) Intimate Partner Violence Answer Date R ecorded Insults You Not on file 08/28/2020 Threatens You Not on file 08/28/2020 Screams at You Not on file 08/28/2020 Physically Hurt Not on file 08/28/2020 Intimate Partner Violence Score Not on file 08/28/2020 Depression Answer Date Recorded PHQ Total Score Not on file 12/15/2023 Sex and Gender Information Value Date Recorded Sex Assigned at Not on file 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 Gender Identity Not on file Sexual Orientation Not on file Last Filed Vital Signs Vital Sign Reading Time Taken Comments Blood Pressure 109/74 08/23/2018 2:38 PM EDT Pulse 74 08/23/2018 2:38 PM EDT Temperature 36.6 ??C (97.9 ??F) 08/23/2018 2:38 PM ED T Respiratory Rate 18 08/23/2018 2:38 PM EDT Oxygen Saturation 98% 08/23/2018 2:38 PM EDT Inhaled Oxygen Concentration - - Weight 78.5 kg (173 lb) 08/23/2018 2:38 PM EDT Height 180.3 cm (5' 11 ) 08/23/2018 2:38 PM EDT Body Mass Index 24.13 08/23/2018 2:38 PM EDT Plan of Treatment Health Maintenance Due Date Last Done Comments Dental Cleaning/Exam 1977 Hepatitis B Immunization (1 of 3 - 19+ 3-dose series) 1996 Colorectal Cancer Screening 08/08/2007 Covid-19 Immunization (1 - 2 024-25 season) 2024 Influenza Immunization (#1) 2024 05/22/2015 Tetanus (Tdap or Td) Immunization 07/17/2027 018 Tetanus Diphtheria and Pertu ssis Immunization (2 - Td or Tdap) 07/17/2027 07/16/2017 HIB Immunization Aged Out No longer e ligible based on patient's age to complete this topic HPV Immunization Aged Out No longer e ligible based on patient's age to complete this topic Hepatitis A Immunization Aged Out No longer eligible based on patient's age to complete this topic Pneumococcal: Ped (0 to 5 Yr s) and At-Risk Member (6 to 64 Yrs) Aged Out No longer e ligible based on patient's age to complete this topic Polio Immunization Aged Out No longer eligible based on patient's age to complete this topic Care Teams Bottling Equipment Sales Representative Relationship Specialty Start Date End Date Abel Toribio PCP - General 03/04/19
== END 2024-07-22 09:46 | disposition home or self-care (01) ==
LOC: HO.HMCH 09:25
PROVIDERS: PCP Physician Assistant; Visit Provider Physician Assistant
DX: G43.009 Migraine without aura, not intractable, without status migrainosus (principal); F41.1 Generalized anxiety disorder; F33.1 Major depressive disorder, recurrent, moderate

== ENCOUNTER 2024-07-22 09:24 | Outpatient (REF) | payer BC, SELFPAY ==
[2024-07-22 11:11] LABS: Hematocrit 49.3 % (42.0-52.0); Hemoglobin 17.2 g/dl (14.0-18.0); Mean Corpuscular HGB Conc 34.9 g/dl (31.0-36.0); Mean Corpuscular Hemoglobin 30.1 pg (27.0-33.0); Mean Corpuscular Volume 86.3 fL (80.0-98.0); Mean Platelet Volume 10.8 fL (9.4-12.4); Platelet Count 231 X10*3/uL (160-400); Red Blood Count 5.71 X10*6/uL (4.60-5.80); Red Cell Distribution Width 13.4 % (11.0-16.0); White Blood Count 7.1 X10*3/uL (4.8-10.8)
[2024-07-22 11:19] LABS: Estimated Average Glucose 88 mg/dL; Hemoglobin A1c % 4.7 % (<6.0)
[2024-07-22 11:49] LABS: Alanine Aminotransferase 50 U/L (0-40); Albumin Level 4.6 g/dL (3.5-5.0); Alkaline Phosphatase 100 U/L (39-117); Anion Gap 12 (12-20); Aspartate Amino Transferase 28 U/L (5-37); Bilirubin Total 0.8 mg/dL (0.0-1.0); Blood Urea Nitrogen 12 mg/dL (9-16); Calcium 9.5 mg/dL (8.4-10.2); Carbon Dioxide 29 mmol/L (22-29); Chloride 104 mmol/L (96-108); Estimated Glomerular Filt Rate > 60; Glucose Fasting 73 mg/dL (60-99); Potassium 4.3 mmol/L (3.3-5.1); Sodium 141 mmol/L (135-145)
--- OUTSIDE RECORDS SUMMARY | 2024-07-22 12:32 | XMS_ITS | Clinical Summary ---
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
== END 2024-07-22 09:25 | disposition home or self-care (01) ==
LOC: HO.LAB 09:24
PROVIDERS: PCP Physician Assistant; Visit Provider Physician Assistant
DX: G43.009 Migraine without aura, not intractable, without status migrainosus (principal); F41.1 Generalized anxiety disorder; F33.1 Major depressive disorder, recurrent, moderate; R16.1 Splenomegaly, not elsewhere classified; R73.09 Other abnormal glucose; Z12.5 Encounter for screening for malignant neoplasm of prostate
CPT/HCPCS: 36415; 80053; 83036; 84153; 85027; 96127